=== PATIENT | female | born 1960 | race Caucasian/White ===

== ENCOUNTER → 2017-03-21 12:12 | Outpatient (CLI) | payer MEDICAID | LOC: D.MAMMO 12:12 → D.MRI 15:30 → D.MAMMO 16:00 | DX: Z12.31 Encounter for screening mammogram for malignant neoplasm of breast (principal) ==

== ENCOUNTER → 2017-03-22 14:52 | Outpatient (CLI) | payer MEDICAID | END | disposition home or self-care (01) | LOC: D.MRI 14:52 | DX: M54.16 Radiculopathy, lumbar region (principal) ==

== ENCOUNTER → 2017-06-22 14:29 | Outpatient (CLI) | payer MEDICAID | END | disposition home or self-care (01) | LOC: D.CT 14:29 | DX: R31.9 Hematuria, unspecified (principal) ==

== ENCOUNTER → 2018-06-20 09:57 | Outpatient (CLI) | payer MEDICAID | END | disposition home or self-care (01) | LOC: D.MRI 09:57 | DX: M54.16 Radiculopathy, lumbar region (principal) ==

== ENCOUNTER 2019-02-27 12:00 | Outpatient (CLI) | payer MEDICAID ==
[2019-04-01 16:37] VITALS: BMI 35.7
== END 2019-02-27 12:30 | disposition home or self-care (01) ==
LOC: D.MAMMO 12:00
PROVIDERS: ATTEND Family Medicine
DX: Z12.31 Encounter for screening mammogram for malignant neoplasm of breast (principal)

== ENCOUNTER 2019-03-05 08:40 | Inpatient (IN) | payer MEDICAID ==
[~2019-03-05] VITALS: Ht 157.5 cm; Wt 91.0 kg
[2019-03-05] MEDS ORDERED: OMEPRAZOLE20 M1 PO (09:30)
[2019-03-05] MEDS ORDERED: ROBAXIN500 MG PO (09:30)
[2019-03-05] MEDS ORDERED: NAPROSYN500 MG PO (09:30)
[2019-03-05] MEDS ORDERED: TRAZODONE HCL150 MG PO (09:31)
[2019-03-05] MEDS ORDERED: EFFEXOR XR37.5 MG PO (09:32)
[2019-03-05 10:13] VITALS: BP 168/87; BMI 36.7
[2019-03-05 10:18] LABS: BASOPHILS 0.1 % (0-2); EOSINOPHILS 0.1 % (0-7); HEMATOCRIT 42.7 % (36.0-48.0); HEMOGLOBIN 15.4 g/dL (12-16); IMMATURE GRANULOCYTES 0.3 % (0-5); LYMPHOCYTES 11.1 % (15-50); MCH 30.2 pg (26.0-34.0); MCHC 36.1 g/dL (31.0-37.0); MCV 83.7 fL (80.0-100.0); MONOCYTES 3.8 % (2-11); NEUTROPHILS 84.6 % (40-80); PLATELET COUNT 222 10x3/uL (130-400); RDW 13.9 % (11.5-14.5); WBC 16.4 10x3/uL (4.8-10.8)
[2019-03-05 10:36] LABS: ALBUMIN 3.6 g/dL (3.4-5.0); ANION GAP 16.9 mmol/L (8-16); BILIRUBIN - TOTAL 0.55 mg/dL (0.2-1.3); CALCIUM 9.5 mg/dL (8.5-10.1); CARBON DIOXIDE 23.8 mmol/L (21.0-32.0); MAGNESIUM - SERUM 1.8 mg/dL (1.8-2.4); POTASSIUM - SERUM 3.7 mmol/L (3.5-5.1); PROTEIN - SERUM 7.1 g/dL (6.4-8.2)
--- NOTE | 2019-03-05 11:01 | NUR ---
PT TO CT VIA WHEELCHAIR. NAD NOTED.
--- NOTE | 2019-03-05 11:14 | NUR ---
PT BACK TO ROOM FORM CT. GAVE EFFEXOR ORDERED WITH SIP OF WATER. IVPB ANTIBIOTIC HUNG AT THIS TIME. PT DENIES ANY NEEDS AT THIS TIME. CALL LIGHT IN REACH, NAD NOTED,W ILL CONTINUE TO MONITOR.
[2019-03-05 13:08] VITALS: Ht 157.5 cm; Wt 91.0 kg
[2019-03-05 14:12] VITALS: BP 132/67
--- NOTE | 2019-03-05 15:44 | NUR ---
PER DR. HARTMAN, DILAUDID CAN BE CHANGED TO Q4PRN.
--- NOTE | 2019-03-05 15:59 | NUR ---
GAVE 1MG OF DILAUDID FOR PAIN LEVEL OF 9/10. PT DENIES ANY OTHER NEEDS AT THIS TIME. CALL LIGHT IN REACH, NAD NOTED, WILL CONTINUE TO MONITOR.
[2019-03-05 16:20] VITALS: BP 112/64
[2019-03-05 16:59] LABS: APPEARANCE CLEAR (CLEAR); COLOR YELLOW (YELLOW); GLUCOSE NEGATIVE (NEGATIVE); KETONE NEGATIVE (NEGATIVE); NITRITE NEGATIVE (NEGATIVE); PROTEIN TRACE mg/dL (NEGATIVE)
[2019-03-05 17:00] LABS: BILIRUBIN NEGATIVE (NEGATIVE); UROBILINOGEN NORMAL (NORMAL)
[2019-03-05 17:20] LABS: UDS - AMPHET NEGATIVE QUAL (NEGATIVE); UDS - BARB NEGATIVE QUAL (NEGATIVE); UDS - BENZO NEGATIVE QUAL (NEGATIVE); UDS - COCAINE NEGATIVE QUAL (NEGATIVE); UDS - OPIATE POSITIVE QUAL (NEGATIVE); UDS - PCP NEGATIVE QUAL (NEGATIVE); UDS - THC POSITIVE QUAL (NEGATIVE)
--- NOTE | 2019-03-05 19:20 | NUR ---
EVENING ROUNDS COMPLETE, PT LAYING IN BED. NO SIGNS OF DISTRESS. PT DENIES ANY PAIN AT THIS TIME. CL IN REACH. BED IN LOWEST POSITION, CONT WITH POC.
[2019-03-05 23:21] VITALS: BP 125/75
[2019-03-06 04:17] VITALS: BP 124/77
[2019-03-06 06:00] LABS: BASOPHILS 0.1 % (0-2); EOSINOPHILS 1.3 % (0-7); HEMATOCRIT 39.4 % (36.0-48.0); HEMOGLOBIN 13.8 g/dL (12-16); IMMATURE GRANULOCYTES 0.2 % (0-5); LYMPHOCYTES 21.7 % (15-50); MEAN PLATELET VOLUME 9.9 fL (7.4-10.4); MONOCYTES 4.9 % (2-11); NEUTROPHILS 71.8 % (40-80); RDW 14.2 % (11.5-14.5)
[2019-03-06 06:24] LABS: CALC OSMOLALITY 283 mosm/kg (275-300); CALCIUM 8.8 mg/dL (8.5-10.1); CARBON DIOXIDE 27.4 mmol/L (21.0-32.0); CHLORIDE - SERUM 106 mmol/L (98-107); CREATININE - SERUM 0.8 mg/dL (0.6-1.3); GLUCOSE 129 mg/dL (74-106); POTASSIUM - SERUM 3.5 mmol/L (3.5-5.1); SODIUM 141 mmol/L (136-145); eGFR NON AFRICAN AMERICAN 78 mL/min (90-120)
[2019-03-06 06:25] LABS: UREA NITROGEN 14 mg/dL (7-18)
[2019-03-06 06:26] LABS: MCV 85.7 fL (80.0-100.0); PLATELET COUNT 165 10x3/uL (130-400); WBC 10.7 10x3/uL (4.8-10.8)
--- NOTE | 2019-03-06 07:10 | NUR ---
REPORT RECEIVED FOR ARCHITECTURAL PROJECT MANAGER AND PATIENT CARE ASSUMED. PATIENT LAYING IN BED ON BACK AWAKE, ALERT AND ORIENTD X 4. PATIENT DENIES ANY NEEDS OR PAIN. WILL CONTINUE WITH PLAN OF CARE. SR UP X2 BED IN LOW POSITION AND CALL LIGHT IN REACH.
--- NOTE | 2019-03-06 08:00 | NUR ---
PATIENT COMPLAINS LOWER ABD PAIN AT AN 8. MEDICATED PER MAR WITH DILAUDED. SHIMON DE IN ROOM AND NEW ORDERS RECEIEVED. WILL CONTINUE TO MONITOR. SR UP X 2 BED IN LOW POSITION AND CALL LIGHT IN REACH.
[2019-03-06 09:39] VITALS: BP 128/90
[2019-03-06 11:05] VITALS: BP 124/74
--- NOTE | 2019-03-06 11:35 | NUR ---
PATIENT STATES FEELING BETTER AND UP TO SHOWER.
--- NOTE | 2019-03-06 12:15 | NUR ---
CALLED TO PATIENTS ROOM. PATIENT STATES THAT SHIMON DE TOLD HER THAT SHE WOULD BE ADVANCED TO FULL LIQUID DIET BUT ORDERS HAVE NOT BEEN CHANGED.CALLED SHIMON DE AND RECEIVED ORDER FOR FULL LIQUID DIET.
--- NOTE | 2019-03-06 13:00 | NUR ---
CALLED TO PATIENT ROOM. PATIENT HAD CONSUMED 50% OF FULL LIQUID DIET. PATIENT IS CRYING AND STATING THAT HER ABD IS HURTING AT A 10 AND THAT SHE IS NAUSEATED. SHE STATES THAT SHE REGRETS ASKING FOR FULL LIUID DIET. MEDICATED PATIENT PER MAR WITH DILAUDTIFFANY AND RAVINDER IV. AT BS. WILL CONTINUE TO MONITOR. SR UP X 2 BED IN LOW POSITION AND CALL LIGHT IN REACH.
--- NOTE | 2019-03-06 13:30 | NUR ---
PATIENT LAYING IN BED ON BACK WITH EYES CLOSED AND BREATHING EVENLY. AT BS. WILL CONTINUE TO MONITOR. SR UP X2 BED IN LOW POSTION AND CALL LIGHT IN REACH.
--- NOTE | 2019-03-06 14:18 | NUR ---
CALLED TO PATIENTS ROOM. PATIENT REQUESTING SUPPOSITORY FOR CONSTIPATION. PATIENT MEDICATED PER MAR WITH DUCOLOX SUPPOSITORY. PATIENT TOLERATED WELL. WILL CONTINUE TO [facility]. SR UP X 2 BED IN LOW POSITION AND CALL [facility] IN REACH.
--- NOTE | 2019-03-06 15:35 | NUR ---
DR HARTMAN IN ROOM. NEW ORDERS RECEIVED. MEDICATED PATIENT PER MAR AND NEW ORDER WITH DILAUDED 2 MG IV. WILL CONTINUE TO MONITOR. SR UP X 2 BED IN LOW POSITION AND CALL LIGHT IN REACH.
[2019-03-06 16:00] VITALS: BP 164/92
--- NOTE | 2019-03-06 16:15 | NUR ---
PATIENT LAYING IN BED ON LEFT SIDE WITH EYES CLOSED AND BREATHING EVENLY. WILL CONTINUE TO MONITOR. SR UP X 2 BED IN LOW POSITION AND CALL LIGHT IN REACH.
--- NOTE | 2019-03-06 19:15 | NUR ---
EVENING ROUNDS COMPLETE. PT LAYING IN BED. PT C/O 02/17 PAIN, PRN DILAUDID GIVEN. CL IN REACH, BED IN LOWEST POSITION. TEACHING ON FALL PERCAUTIONS. PT VOICED UNDERSTANDING. CONT WITH POC.
[2019-03-07 03:37] VITALS: BP 122/75
[2019-03-07 05:59] LABS: BASOPHILS 0.2 % (0-2); EOSINOPHILS 0.3 % (0-7); HEMATOCRIT 38.4 % (36.0-48.0); IMMATURE GRANULOCYTES 0.2 % (0-5); LYMPHOCYTES 8.6 % (15-50); MCH 29.1 pg (26.0-34.0); MCHC 33.9 g/dL (31.0-37.0); MCV 85.9 fL (80.0-100.0); MEAN PLATELET VOLUME 9.9 fL (7.4-10.4); MONOCYTES 5.2 % (2-11); NEUTROPHILS 85.5 % (40-80); PLATELET COUNT 170 10x3/uL (130-400); RBC 4.47 10x6/uL (4.00-5.40); RDW 14.1 % (11.5-14.5); WBC 11.2 10x3/uL (4.8-10.8)
[2019-03-07 06:15] LABS: CALC OSMOLALITY 283 mosm/kg (275-300); CALCIUM 8.4 mg/dL (8.5-10.1); CARBON DIOXIDE 31.2 mmol/L (21.0-32.0); CHLORIDE - SERUM 105 mmol/L (98-107); CREATININE - SERUM 0.8 mg/dL (0.6-1.3); GLUCOSE 136 mg/dL (74-106); POTASSIUM - SERUM 3.8 mmol/L (3.5-5.1); SODIUM 142 mmol/L (136-145); UREA NITROGEN 10 mg/dL (7-18); eGFR NON AFRICAN AMERICAN 78 mL/min (90-120)
--- NOTE | 2019-03-07 07:07 | NUR ---
REPORT RECEIVED FROM TILE FINISHER AND PATIENT CARE ASSUMED. PATIENT LAYING IN BED ON LEFT SIDE WITH EYES CLOSED AND BREATHING EVENLY. WILL CONTINUE TO MONITOR. SR UP X 2 BED IN LOW POSITION AND CALL LIGHT IN REACH.
[2019-03-07 08:00] VITALS: BP 128/72
--- NOTE | 2019-03-07 10:08 | MORECARE ---
CASE MANAGEMENT DISCHARGE SUMMARY PATIENT: VANI RAMOS UNIT: [id number] ADM DATE: 03/05/19 AGE: 58 : 62 SEX: F ROOM/BED: D.1212 AUTHOR: BRAVO SCHILLING PHYSICIAN: REFERRING PHYSICIAN: ROBBIN HARTMAN MD DATE OF SERVICE: 03/07/19 Discharge Plan Patient Name: VANI RAMOS Facility: [facility]:[place] : 1960 Planned Disposition: Home Anticipated Discharge Date: 03/09/19 Discharge Date: Expected LOS: 4 Initial Reviewer: [email or web address] Initial Review Date: 03/05/2019 Generated: 03/07/19 11:08 am Comments DCP- Discharge Planning Updated by [email or web address]: Junie Mary on 03/07/19 9:[address] Patient Name: VANI RAMOS Admission Status: Elective Accout number: [id number] Admission Date: 03-05-2019 : 1960 Admission Diagnosis: Attending: ROBBIN HARTMAN Current LOS: 2 Anticipated DC Date: 03-09-2019 Planned Disposition: Home Primary Insurance: MEDICAID [place] Discharge Planning Comments: DC PLAN: Return home with her . She is independent at home. ANTICIPATED DC NEEDS: Denied known dc needs. CM met with patient to complete initial dc planning assessment. CM educated patient on the CM role and verbal consent given by patient to complete assessment. CM verified patient's address, phone number, and emergency contact phone numbers. Patient lives at home with her and reports she is independent in her care at home. At discharge patient plans to return home and feels this is a safe discharge. CM discussed availability of home health, rehab services, and medical equipment. Patient denied known discharge needs at this time. Patient reports her will transport her home at time of discharge. Patient is in a lot of pain that is requiring pain medication every 4 hours. She is tearful and stated she told Dr. Rodgers about her pain level. CM will continue to follow and will assist as needed with dc plans/needs. Hardware Engineering Manager: Junie Mary DCP- Discharge Planning Updated by [email or web address]: Rachael Figueredo on 03/06/19 6:[address] CM attempted to meet with patient for discharge planning. Patient requested for CM to come back at a later time d/t her pain level. CM will continue to follow and assist as needed with discharge planning / needs. DCPIA - Discharge Planning Initial Assessment Updated by [email or web address]: Junie Mary on 03/07/19 10:01 am * Is the patient Alert and Oriented? Yes * How many steps to enter\exit or inside your home? none * PCP Dr. Rodgers * Pharmacy [facility] * Preadmission Environment Home with Family * ADLs Independent * Equipment None * List name and contact numbers for known caregivers / representatives who currently or will assist patient after discharge: Cassius Ramos - spouse - [phone] * Verbal permission to speak to the caregivers and representatives has been obtained from the patient. Yes * Community resources currently utilized None * Additional services required to return to the preadmission environment? No * Can the patient safely return to the preadmission environment? Yes * Has this patient been hospitalized within the prior 30 days at any hospital? No Patient Name: VANI RAMOS Page [phone] at 1008 All edits/amendments must be made on the electronic document DICTATION DATE: 03/07/19 1008 NIGHT COORDINATOR: ERASMO 03/07/19 1008 RPT#: [id number] LA DATE: STATUS: ADM IN [facility] [address] [place] [address] END OF REPORT
[2019-03-07 14:47] VITALS: BP 136/83
--- NOTE | 2019-03-07 15:17 | NUR ---
PATIENT COMPLAINS OF ABD PAIN AT A 9. STATES THAT PREVIOUS TYLENOL HELPED INITIALLY BUT PAIN HAS RETURNED AND IS INCREASING IN INTENSITY. MEDICATED PER MAR WITH DILAUDED 2 MG IV. WILL CONTINUE TO MONITOR PATIENT. SR UP X 2 BED IN LOW POSITION AND CALL LIGHT IN REACH.
--- NOTE | 2019-03-07 19:10 | NUR ---
EVENING ROUNDS COMPLETE, PT LAYING IN BED, NO SIGNS OF DISTRESS. PT DENIES ANY PAIN AT THIS TIME. VSS, CL IN REACH, BED IN LOWEST POSITION. CONT WITH POC.
[2019-03-07 20:25] VITALS: BP 146/77
[2019-03-08 04:25] VITALS: BP 135/80
--- NOTE | 2019-03-08 07:10 | NUR ---
REPORT RECEIVED FROM WELDER PLASTIC AND PATIENT CARE ASSUMED. PATIENT LAYING IN BED ON RT SIDE WITH EYES CLOSED AND BREATHING EVENLY. WILL CONTINUE WITH PLAN OF CARE. SR UP X 2 BED IN LOW POSITION AND CALL LIGHT IN REACH.
--- NOTE | 2019-03-08 07:30 | NUR ---
PATIENT COMPLAINS OF NAUSEA. MEDICATED PER MAR WITH ZOFRAN 4 MG IV. WILL CONTINUE TO [facility].
--- NOTE | 2019-03-08 08:42 | NUR ---
PATIENT STATES FEELING BETTER . NO NAUSEA. WILL CONTINUE TO MONITOR. SR UP X 2 BED IN LOW POSITION AND CALL LIGHT IN REACH.
--- NOTE | 2019-03-08 11:00 | NUR ---
PATIENT IS STABLE AND VSS. PATIENT UP TO SHOWER, COMPLETE LINEN CHANGE AND NEW GOWN. WILL CONTINUE TO MONITOR. SR UP X 2 BED IN LOW POSITION AND CALL LIGHT IN REACH.
--- NOTE | 2019-03-08 14:00 | NUR ---
PATIENT AMBULATING ON UNIT WITH SPOUSE AT .
--- NOTE | 2019-03-08 16:55 | NUR ---
PATIENT EATING SUPPER. DENIES ANY NEEDS OR PAIN. WILL CONTINUE TO MONITOR.SR UP X 2 BED IN LOW POSITION AND CALL LIGHT IN REACH.
[2019-03-08 19:38] VITALS: BP 132/78
[2019-03-09] VITALS: BP 129/68
[2019-03-09 04:00] VITALS: BP 161/81
--- NOTE | 2019-03-09 07:15 | NUR ---
PT RESTING IN BED, SHIFT ASSESSMENT PERFORMED. DENIES ANY NEEDS AT THIS TIME, WILL CONT TO FOLLOW POC
[2019-03-09 07:21] VITALS: BP 174/88
[2019-03-09 07:58] LABS: BASOPHILS 0.3 % (0-2); EOSINOPHILS 1.1 % (0-7); HEMATOCRIT 38.6 % (36.0-48.0); HEMOGLOBIN 13.3 g/dL (12-16); IMMATURE GRANULOCYTES 0.3 % (0-5); LYMPHOCYTES 20.3 % (15-50); MCH 29.3 pg (26.0-34.0); MCHC 34.5 g/dL (31.0-37.0); MEAN PLATELET VOLUME 9.3 fL (7.4-10.4); PLATELET COUNT 179 10x3/uL (130-400); RBC 4.54 10x6/uL (4.00-5.40); RDW 14.1 % (11.5-14.5)
[2019-03-09 08:16] LABS: CALC OSMOLALITY 282 mosm/kg (275-300); CALCIUM 8.9 mg/dL (8.5-10.1); CARBON DIOXIDE 28.4 mmol/L (21.0-32.0); CHLORIDE - SERUM 105 mmol/L (98-107); CREATININE - SERUM 0.8 mg/dL (0.6-1.3); GLUCOSE 131 mg/dL (74-106); POTASSIUM - SERUM 3.5 mmol/L (3.5-5.1); SODIUM 142 mmol/L (136-145); UREA NITROGEN 7 mg/dL (7-18); eGFR NON AFRICAN AMERICAN 78 mL/min (90-120)
[2019-03-09] MEDS ORDERED: LEVAQUIN750 MG PO (08:32)
[2019-03-09] MEDS ORDERED: FLAGYL500 MG PO (08:33)
--- NOTE | 2019-03-09 10:05 | NUR ---
DISCHARGE INTRUCTIONS REVIEWED WITH PT AND ALL QUESTIONS ANSWERED, PT BECAME HYSTERICAL WHEN NURSE TOLD HER THERE WAS NO PAIN MEDICATION OR NAUSEA MEDICATION ORDERED. PAGED CARLENE PAK AND APPROVAL GIVEN TO CALL IN y primeOMINE AND ZOFRAN FOR PT. CALLED IN TO [facility] AND SPOKE WITH LEE. PIV REMOVED WITH CATHETER TIP INTACT. PT IS WAITING FOR TO ARRIVE
--- NOTE | 2019-03-09 10:30 | NUR ---
PT LEFT FACILITY WITH
--- NOTE | 2019-03-09 22:12 | MORECARE ---
CASE MANAGEMENT DISCHARGE SUMMARY PATIENT: VANI RAMOS UNIT: [id number] ADM DATE: 03/05/19 AGE: 58 : 62 SEX: F ROOM/BED: D.1212 AUTHOR: BRAVO SCHILLING PHYSICIAN: REFERRING PHYSICIAN: ROBBIN HARTMAN MD DATE OF SERVICE: 03/09/19 Discharge Plan Patient Name: VANI RAMOS Facility: [facility]:[place] : 1960 Planned Disposition: Home Anticipated Discharge Date: 03/09/19 Discharge Date: 03/09/2019 Expected LOS: 4 Initial Reviewer: [email or web address] Initial Review Date: 03/05/2019 Generated: 03/09/19 11:11 pm DCP- Discharge Planning Updated by [email or web address]: Junie Mary on 03/07/19 9:[address] Patient Name: VANI RAMOS Admission Status: Elective Accout number: [id number] Admission Date: 03-05-2019 : 1960 Admission Diagnosis: Attending: ROBBIN HARTMAN Current LOS: 2 Anticipated DC Date: 03-09-2019 Planned Disposition: Home Primary Insurance: MEDICAID [place] Discharge Planning Comments: DC PLAN: Return home with her . She is independent at home. ANTICIPATED DC NEEDS: Denied known dc needs. CM met with patient to complete initial dc planning assessment. CM educated patient on the CM role and verbal consent given by patient to complete assessment. CM verified patient's address, phone number, and emergency contact phone numbers. Patient lives at home with her and reports she is independent in her care at home. At discharge patient plans to return home and feels this is a safe discharge. CM discussed availability of home health, rehab services, and medical equipment. Patient denied known discharge needs at this time. Patient reports her will transport her home at time of discharge. Patient is in a lot of pain that is requiring pain medication every 4 hours. She is tearful and stated she told Dr. Rodgers about her pain level. CM will continue to follow and will assist as needed with dc plans/needs. Picture Painter: Junie Mary DCP- Discharge Planning Updated by [email or web address]: Rachael Figueredo on 03/06/19 6:[address] CM attempted to meet with patient for discharge planning. Patient requested for CM to come back at a later time d/t her pain level. CM will continue to follow and assist as needed with discharge planning / needs. DCPIA - Discharge Planning Initial Assessment Updated by [email or web address]: Junie Mary on 03/07/19 10:01 am * Is the patient Alert and Oriented? Yes * How many steps to enter\exit or inside your home? none * PCP Dr. Rodgers * Pharmacy [facility] * Preadmission Environment Home with Family * ADLs Independent * Equipment None * List name and contact numbers for known caregivers / representatives who currently or will assist patient after discharge: Cassius Ramos - spouse - [phone] * Verbal permission to speak to the caregivers and representatives has been obtained from the patient. Yes * Community resources currently utilized None * Additional services required to return to the preadmission environment? No * Can the patient safely return to the preadmission environment? Yes * Has this patient been hospitalized within the prior 30 days at any hospital? No Last DP export: 03/07/19 9:08 a Patient Name: VANI RAMOS Page [phone] at 2212 All edits/amendments must be made on the electronic document DICTATION DATE: 03/09/192210 TELEPHONE DIAPHRAGM ASSEMBLER: ERASMO 03/09/192210 RPT#: [id number] DC DATE:03/09/19 STATUS: DIS IN [facility] [address] [place] [address] END OF REPORT
== END 2019-03-09 10:30 | disposition home or self-care (01) | DRG 392 ==
LOC: D.M3 08:40 → D.WS 08:40 → D.M3 08:59
PROVIDERS: Family Medicine; ADMIT Internal Medicine Nephrology; ATTEND Internal Medicine Nephrology
DX: A09 Infectious gastroenteritis and colitis, unspecified (principal); N17.9 Acute kidney failure, unspecified; K92.1 Melena; K59.09 Other constipation; Z87.891 Personal history of nicotine dependence; K52.89 Other specified noninfective gastroenteritis and colitis

== ENCOUNTER 2019-04-01 12:19 | Inpatient (IN) | payer MEDICAID ==
[~2019-04-01] VITALS: Ht 157.5 cm; Wt 88.6 kg
[~2019-04-01 12:19] MED LIST: EFFEXOR XR37.5 MG PO; FLAGYL500 MG PO; LEVAQUIN750 MG PO; NAPROSYN500 MG PO; OMEPRAZOLE20 M1 PO; ROBAXIN500 MG PO; TRAZODONE HCL150 MG PO
--- NOTE | 2019-04-01 12:38 | NUR ---
PT POINTS TO EPIGASTRIC WHEN ASKED WHERE PAIN IS.
[2019-04-01 12:40] LABS: BASOPHILS 0.1 % (0-2); EOSINOPHILS 0.5 % (0-7); HEMATOCRIT 42.2 % (36.0-48.0); HEMOGLOBIN 14.8 g/dL (12-16); IMMATURE GRANULOCYTES 0.4 % (0-5); LYMPHOCYTES 20.4 % (15-50); MCH 29.6 pg (26.0-34.0); MCHC 35.1 g/dL (31.0-37.0); MCV 84.4 fL (80.0-100.0); MEAN PLATELET VOLUME 9.3 fL (7.4-10.4); MONOCYTES 8.3 % (2-11); NEUTROPHILS 70.3 % (40-80); PLATELET COUNT 210 10x3/uL (130-400)
[2019-04-01 13:00] LABS: AMYLASE - SERUM 36 U/L (25-115); LIPASE 154 U/L (73-393)
[2019-04-01 13:03] LABS: ALBUMIN 4.1 g/dL (3.4-5.0); ALKALINE PHOSPHATASE 102 U/L (46-116); ALT (SGPT) 28 U/L (10-68); BILIRUBIN - TOTAL 0.77 mg/dL (0.2-1.3); CALC OSMOLALITY 281 mosm/kg (275-300); CALCIUM 9.4 mg/dL (8.5-10.1); CARBON DIOXIDE 22.9 mmol/L (21.0-32.0); CHLORIDE - SERUM 104 mmol/L (98-107); CREATININE - SERUM 0.9 mg/dL (0.6-1.3); GLUCOSE 158 mg/dL (74-106); POTASSIUM - SERUM 3.6 mmol/L (3.5-5.1); PROTEIN - SERUM 7.9 g/dL (6.4-8.2); SODIUM 140 mmol/L (136-145); UREA NITROGEN 12 mg/dL (7-18); eGFR NON AFRICAN AMERICAN 68 mL/min (90-120)
[2019-04-01 13:08] LABS: CKMB 0.5 U/L (0.0-3.6); CREATINE KINASE 38 UL (21-215); MAGNESIUM - SERUM 1.9 mg/dL (1.8-2.4)
[2019-04-01 13:09] LABS: TROPONIN-I < 0.017 ng/mL (0.000-0.060)
--- NOTE | 2019-04-01 13:09 | NUR ---
PT STATES SHE GOT RELIEF FROM PRESSURE FROM NITRO TAB.
--- NOTE | 2019-04-01 13:38 | NUR ---
PT STATES PAIN IS A 3 AT THIS TIME.
[2019-04-01 13:48] VITALS: BP 117/74
[2019-04-01 15:35] LABS: APTT 32.7 SECONDS (22.8-39.4); INR 1.07 (0.85-1.17); PROTIME 13.4 SECONDS (11.6-15.0)
[2019-04-01 15:36] LABS: D-DIMER-QUANTITATIVE < 0.27 ug/mLFEU (0.20-0.54)
[2019-04-01 15:49] LABS: CKMB 0.3 U/L (0.0-3.6); CREATINE KINASE 32 UL (21-215)
[2019-04-01 15:53] LABS: TROPONIN-I < 0.017 ng/mL (0.000-0.060)
--- NOTE | 2019-04-01 16:23 | NUR ---
RECEIVED PT TO ROOM 2125 VIA WHEELCHAIR. PT A/O X4, VITAL SIGNS STABLE, RESP EVEN AND NONLABORED ON RA. RT FA IV SL. ORIENTED PT TO ROOM AND CALL LIGHT. WILL ASSESS PT AND START PLAN OF CARE.
[2019-04-01 16:37] VITALS: BP 147/73; Ht 157.5 cm; Wt 88.6 kg
--- NOTE | 2019-04-01 19:50 | NUR ---
PT REQUESTED TRAZADONE. SHIMON HERRERA PAGED. NEW ORDERES ESTABLISHED. WILL CONTINUE TO MONITOR.
[2019-04-01 20:23] VITALS: BP 132/70
[2019-04-01 21:38] LABS: APPEARANCE CLEAR (CLEAR); BILIRUBIN NEGATIVE (NEGATIVE); COLOR YELLOW (YELLOW); GLUCOSE NEGATIVE (NEGATIVE); KETONE MODERATE mg/dL (NEGATIVE); NITRITE NEGATIVE (NEGATIVE); PROTEIN 1+ mg/dL (NEGATIVE); UROBILINOGEN NORMAL (NORMAL)
[2019-04-01 21:40] LABS: BACTERIA FEW /hpf (NEGATIVE); EPITHELIAL CELLS 0-5 /hpf (0-5); RED CELLS - URINE 0-5 /hpf (0-5); WHITE CELLS - URINE 0-5 /hpf (NEGATIVE)
[2019-04-01 21:43] LABS: UDS - AMPHET NEGATIVE QUAL (NEGATIVE); UDS - BARB NEGATIVE QUAL (NEGATIVE); UDS - BENZO NEGATIVE QUAL (NEGATIVE); UDS - COCAINE NEGATIVE QUAL (NEGATIVE); UDS - OPIATE POSITIVE QUAL (NEGATIVE); UDS - PCP NEGATIVE QUAL (NEGATIVE); UDS - THC POSITIVE QUAL (NEGATIVE)
[2019-04-01 22:01] LABS: CKMB 0.3 U/L (0.0-3.6); CREATINE KINASE 33 UL (21-215)
[2019-04-01 22:03] LABS: TROPONIN-I < 0.017 ng/mL (0.000-0.060)
[2019-04-02 00:11] VITALS: BP 112/60
--- NOTE | 2019-04-02 00:48 | NUR ---
I have reviewed this patient and I concur with the Shift Assessment completed by the Licensed Practical Nurse today this shift.
--- NOTE | 2019-04-02 02:54 | NUR ---
PT RESTING IN BED RR EVEN AND UNLABORED. NO S/S OF DISTRESS AT THIS TIME. PT REMAINS NPO UNTIL CARDIOLOGY SEE'S PT. VITALS STABLE. PT RUNNING 57-SINUS SYL ON TELEMETRY. BED LOW CALL LIGHT WITHIN REACH. WILL CONTINUE TO MONITOR.
[2019-04-02 04:24] VITALS: BP 112/67
[2019-04-02 04:31] LABS: BASOPHILS 0.2 % (0-2); EOSINOPHILS 1.1 % (0-7); HEMOGLOBIN 12.4 g/dL (12-16); IMMATURE GRANULOCYTES 0.4 % (0-5); LYMPHOCYTES 31.2 % (15-50); MCH 29.2 pg (26.0-34.0); MCHC 34.4 g/dL (31.0-37.0); MCV 84.9 fL (80.0-100.0); MEAN PLATELET VOLUME 9.5 fL (7.4-10.4); MONOCYTES 10.6 % (2-11); NEUTROPHILS 56.5 % (40-80); PLATELET COUNT 177 10x3/uL (130-400); RBC 4.24 10x6/uL (4.00-5.40); RDW 13.8 % (11.5-14.5)
[2019-04-02 04:40] LABS: WBC 5.3 10x3/uL (4.8-10.8)
[2019-04-02 04:59] LABS: CALC OSMOLALITY 281 mosm/kg (275-300); CARBON DIOXIDE 28.5 mmol/L (21.0-32.0); CHLORIDE - SERUM 103 mmol/L (98-107); CKMB 0.3 U/L (0.0-3.6); CREATINE KINASE 29 UL (21-215); CREATININE - SERUM 0.8 mg/dL (0.6-1.3); GLUCOSE 112 mg/dL (74-106); MAGNESIUM - SERUM 1.8 mg/dL (1.8-2.4); POTASSIUM - SERUM 4.1 mmol/L (3.5-5.1); SODIUM 141 mmol/L (136-145); TROPONIN-I < 0.017 ng/mL (0.000-0.060); UREA NITROGEN 12 mg/dL (7-18); eGFR NON AFRICAN AMERICAN 78 mL/min (90-120)
[2019-04-02 07:53] VITALS: BP 126/72
--- NOTE | 2019-04-02 09:28 | NUR ---
PATIENT WAS COMPLAINING OF HEADACHE AND CHEST PAIN. DR TRAN ROUNDED AND PUT IN A GI CONSULT. TREATED HER HEADACHE AND CHEST PAIN ORDERED. SHE HAS HAD RELIEF OF HER PAIN. WAITING ON ORDERS FROM GI.
[2019-04-02 11:03] VITALS: BP 106/53
[2019-04-02 15:37] VITALS: BP 112/74
--- NOTE | 2019-04-02 15:41 | NUR ---
PATIENT IS GETTING HER EGD WITH T[facility]A NOW.
--- NOTE | 2019-04-02 16:16 | NUR ---
PATIENT IS BACK FROM EGD. SHE IS REQUESTING COFFEE AND SHE NOW HAS A DIET.
--- NOTE | 2019-04-02 16:32 | NUR ---
AFTER EGD WITH ISSAC SHAFFER, THEY TOOK ONE BIOPSY IN THE STOMACH. SHE HAS SMALL GASTRITIS AND ESOPHOGITIS.
[2019-04-02 20:00] VITALS: BP 139/74
--- NOTE | 2019-04-02 20:00 | NUR ---
PT SITTING UP IN BED ALERT AND ORIENTED X4. FAMILY AT BEDSIDE. PT DENIES ANY PAIN OR FURTHER NEEDS AT THIS TIME. BED LOW CALL LIGHT WITHIN REACH . WILL CONTINUE TO MONITOR.
--- NOTE | 2019-04-03 01:44 | NUR ---
PT RESTING IN BED WITH EYES CLOSED RR EVEN AND UNLABORED. BED LOW CALL LIGHT WITHIN REACH. WILL CONTINUE TO MONITOR.
[2019-04-03 04:00] VITALS: BP 108/62
--- NOTE | 2019-04-03 04:56 | NUR ---
I have reviewed this patient and I concur with the Shift Assessment completed by the Licensed Practical Nurse today this shift.
[2019-04-03 05:48] LABS: BASOPHILS 0.2 % (0-2); EOSINOPHILS 1.6 % (0-7); HEMATOCRIT 37.9 % (36.0-48.0); HEMOGLOBIN 13.1 g/dL (12-16); IMMATURE GRANULOCYTES 0.3 % (0-5); LYMPHOCYTES 29.9 % (15-50); MCH 29.2 pg (26.0-34.0); MCHC 34.6 g/dL (31.0-37.0); MCV 84.6 fL (80.0-100.0); MEAN PLATELET VOLUME 9.9 fL (7.4-10.4); MONOCYTES 8.8 % (2-11); NEUTROPHILS 59.2 % (40-80); PLATELET COUNT 194 10x3/uL (130-400); RBC 4.48 10x6/uL (4.00-5.40); RDW 13.8 % (11.5-14.5); WBC 5.8 10x3/uL (4.8-10.8)
[2019-04-03 06:36] LABS: CALC OSMOLALITY 281 mosm/kg (275-300); CARBON DIOXIDE 29.5 mmol/L (21.0-32.0); CHLORIDE - SERUM 104 mmol/L (98-107); CREATININE - SERUM 0.8 mg/dL (0.6-1.3); GLUCOSE 93 mg/dL (74-106); SODIUM 141 mmol/L (136-145); UREA NITROGEN 14 mg/dL (7-18); eGFR NON AFRICAN AMERICAN 78 mL/min (90-120)
--- NOTE | 2019-04-03 07:21 | NUR ---
REPORT RECIEVED. WILL CONTINUE WITH POC. PT CURRENTLY LYING SEMI FOWLERS. CALL LIGHT W/I REACH. PT IS AAO AND UP AD ETHAN. RR EVEN AND UNLABORED ON RA. R.FOR PIV IS SALINE LOCKED. PT DENIES ANY NEEDS. NO S/S OF DISTRESS NOTED. WILL CTM.
[2019-04-03 08:29] VITALS: BP 122/82
--- NOTE | 2019-04-03 10:47 | NUR ---
I have reviewed this patient and I concur with the Shift Assessment completed by the Licensed Practical Nurse today this shift.
[2019-04-03 11:24] VITALS: BP 114/75
[2019-04-03] MEDS ORDERED: ALBUTEROL2.5 MG/3 M INH (15:16)
[2019-04-03] MEDS ORDERED: ZITHROMAX250 MG PO (15:16)
[2019-04-03] MEDS ORDERED: PROTONIX40 MG PO (15:17)
[2019-04-03 15:50] VITALS: BP 135/84
[2019-04-03] MEDS ORDERED: ALBUTEROL SULF8.5 GM INH (16:24)
--- NOTE | 2019-04-03 17:02 | NUR ---
PT DISCHARGED HOME VIA WHEELCHAIR WITH FAMILY. PT SIGNED PROPER DISCHARGE INSTRUCTIONS AND REMOVED ALL VALUABLES FROM THE ROOM. TELEMETRY REMOVED AND RETURNED. PIV REMOVED WITH CATHETER TIP FULLY INTACT.
--- NOTE | 2019-04-03 17:30 | MORECARE ---
CASE MANAGEMENT DISCHARGE SUMMARY PATIENT: VANI RAMOS UNIT: [id number] ADM DATE: 04/02/19 AGE: 58 : 62 SEX: F ROOM/BED: D.5742 AUTHOR: BRAVO SCHILLING PHYSICIAN: REFERRING PHYSICIAN: JUSTIN GUERRIER MD DATE OF SERVICE: 04/03/19 Discharge Plan Patient Name: VANI RAMOS [facility] [facility] 1960 Planned Disposition: Home Anticipated Discharge Date: 04/03/19 Discharge Date: 04/03/2019 Expected LOS: 1 Initial Reviewer: [email or web address] Initial Review Date: 04/03/2019 Generated: 04/03/19 6:29 pm Patient Name: VANI RAMOS Page [phone] at 1730 All edits/amendments must be made on the electronic document DICTATION DATE: 04/03/191728 GRAPHITE GRINDER: ERASMO 04/03/191728 RPT#: [id number] DC DATE:04/03/19 STATUS: DIS IN [facility] [address] [place] [address] END OF REPORT
--- NOTE | 2019-04-03 17:37 | MORECARE ---
CASE MANAGEMENT DISCHARGE SUMMARY PATIENT: VANI RAMOS UNIT: [id number] ADM DATE: 04/02/19 AGE: 58 : 62 SEX: F ROOM/BED: D.3759 AUTHOR: BRAVO SCHILLING PHYSICIAN: REFERRING PHYSICIAN: JUSTIN GUERRIER MD DATE OF SERVICE: 04/03/19 Discharge Plan Patient Name: VANI RAMOS Facility: [facility]:[place] : 1960 Planned Disposition: Home Anticipated Discharge Date: 04/03/19 Discharge Date: 04/03/2019 Expected LOS: 1 Initial Reviewer: [email or web address] Initial Review Date: 04/03/2019 Generated: 04/03/19 6:37 pm Comments DCP- Discharge Planning Updated by [id number]: Elvin Blanco on 04/03/19 4:[address] Patient Name: VANI RAMOS Admission Status: ER Accout number: [id number] Admission Date: 04-02-2019 : 1960 Admission Diagnosis: Attending: DONTE GUERRIER Current LOS: 1 Anticipated DC Date: 04-03-2019 Planned Disposition: Home Primary Insurance: MEDICAID [place] Discharge Planning Comments: CM MET WITH PT IN ROOM TO DISCUSS DISCHARGE PLANNING AND NEEDS. PT REPORTS LIVING AT HOME INDEPENDENTLY WITH HER SPOUSE. PT HAS NO MEDICAL EQUIPMENT AND NO OUTSIDE SERVICES ASSISTING IN THE HOME. CM DISCUSSED AVAILABILITY OF HOME HEALTH, REHAB SERVICES AND MEDICAL EQUIPMENT. PT DENIES DISCHARGE NEEDS, REPORTS HER SPOUSE WILL PICK HER UP FOR DISCHARGE HOME. Metal Riveter: Elvin Blanco DCPIA - Discharge Planning Initial Assessment Updated by [id number]: Elvin Blanco on 04/03/19 5:30 pm * Is the patient Alert and Oriented? Yes * How many steps to enter\exit or inside your home? NONE * PCP DR. MARQUEZ * Pharmacy [facility] * Preadmission Environment Home with Family * ADLs Independent * Equipment None * Other Equipment NO MEDICAL EQUIPMENT PROVIDER PREFERENCE * List name and contact numbers for known caregivers / representatives who currently or will assist patient after discharge: ALCON RAMOS, SPOUSE, * Verbal permission to speak to the caregivers and representatives has been obtained from the patient. N/A * Community resources currently utilized None * Please name any agencies selected above. NONE * Additional services required to return to the preadmission environment? No * Can the patient safely return to the preadmission environment? Yes * Has this patient been hospitalized within the prior 30 days at any hospital? No Last DP export: 04/03/19 4:30 p Patient Name: VANI RAMOS Page [phone] at 1737 All edits/amendments must be made on the electronic document DICTATION DATE: 04/03/191736 CERTIFIED MEDICAL TRANSCRIPTIONIST: ERASMO 04/03/191736 RPT#: [id number] DC DATE:04/03/19 STATUS: DIS IN [facility] [address] [place] [address] END OF REPORT
== END 2019-04-03 17:03 | disposition home or self-care (01) | DRG 391 ==
LOC: D.ER 12:19 → D.M2 15:22 → OBSVTIME 15:22 → D.M2 04-02 16:19
PROVIDERS: Family Medicine; Internal Medicine Gastroenterology; ADMIT Emergency Medicine; ATTEND Emergency Medicine
PROC: 0DB68ZX Excision of Stomach, Via Natural or Artificial Opening Endoscopic, Diagnostic (ICD-10-PCS; principal; 2019-04-02 15:45)
DX: K21.0 Gastro-esophageal reflux disease with esophagitis (principal); J18.9 Pneumonia, unspecified organism; K29.70 Gastritis, unspecified, without bleeding; M54.9 Dorsalgia, unspecified; G89.29 Other chronic pain; R73.9 Hyperglycemia, unspecified; K59.09 Other constipation

== ENCOUNTER → 2020-01-02 08:44 | Outpatient (CLI) | payer MEDICAID ==
[2019-04-01 16:37] VITALS: BMI 35.7
[~2020-01-02 08:44] MED LIST changes: +ALBUTEROL SULF8.5 GM INH; +ALBUTEROL2.5 MG/3 M INH; +PROTONIX40 MG PO; +ZITHROMAX250 MG PO
== END | disposition home or self-care (01) ==
LOC: D.CT 08:44
PROVIDERS: ATTEND Family Medicine
DX: M25.551 Pain in right hip (principal)

== ENCOUNTER → 2020-01-16 21:23 | Outpatient (CLI) | payer MEDICAID ==
[2019-04-01 16:37] VITALS: BMI 35.7
== END | disposition home or self-care (01) ==
LOC: D.LABREF 21:23
PROVIDERS: ATTEND Orthopaedic Surgery
DX: M16.11 Unilateral primary osteoarthritis, right hip (principal)

== ENCOUNTER 2020-01-17 09:53 | Inpatient (IN) | payer MEDICAID ==
[~2020-01-17] VITALS: Ht 157.5 cm; Wt 63.5 kg
[~2020-01-17 09:53] MED LIST changes: +EFFEXOR XR150 MG PO; -EFFEXOR XR37.5 MG PO; -TRAZODONE HCL150 MG PO; +TRAZODONE HCL300 MG PO
[2020-02-06 12:03] LABS: APTT 32.7 SECONDS (22.8-39.4); INR 0.99 (0.85-1.17); PROTIME 13.1 SECONDS (11.6-15.0)
[2020-02-06 12:10] LABS: BILIRUBIN NEGATIVE (NEGATIVE); GLUCOSE NEGATIVE (NEGATIVE); KETONE NEGATIVE (NEGATIVE); NITRITE NEGATIVE (NEGATIVE); UROBILINOGEN NORMAL (NORMAL)
[2020-02-06 12:10] LABS: CALC OSMOLALITY 280 mosm/kg (275-300); CALCIUM 9.5 mg/dL (8.5-10.1); CARBON DIOXIDE 27.9 mmol/L (21.0-32.0); CHLORIDE - SERUM 105 mmol/L (98-107); CREATININE - SERUM 0.7 mg/dL (0.6-1.3); GLUCOSE 89 mg/dL (74-106); POTASSIUM - SERUM 4.1 mmol/L (3.5-5.1); SODIUM 140 mmol/L (136-145); UREA NITROGEN 21 mg/dL (7-18); eGFR NON AFRICAN AMERICAN > 90 mL/min (90-120)
[2020-02-06 12:11] LABS: BACTERIA FEW /hpf (NEGATIVE); EPITHELIAL CELLS 0-5 /hpf (0-5); RED CELLS - URINE 0-5 /hpf (0-5); WHITE CELLS - URINE OCC /hpf (NEGATIVE)
[2020-02-06 12:19] LABS: BASOPHILS 0.1 % (0-2); EOSINOPHILS 0.6 % (0-7); HEMATOCRIT 41.5 % (36.0-48.0); IMMATURE GRANULOCYTES 0.2 % (0-5); LYMPHOCYTES 28.4 % (15-50); MCHC 33.7 g/dL (31.0-37.0); MEAN PLATELET VOLUME 9.5 fL (7.4-10.4); NEUTROPHILS 63.7 % (40-80); RBC 4.51 10x6/uL (4.00-5.40); RDW 13.7 % (11.5-14.5); WBC 9.9 10x3/uL (4.8-10.8)
[2020-02-06 12:20] LABS: PLATELET COUNT 241 10x3/uL (130-400)
[2020-02-12] VITALS (13 sets, daily range): BP systolic 84–126; BP diastolic 40–92; BMI 25.6
--- NOTE | 2020-02-12 06:44 | NUR ---
0630 DR. MARIN NOTIFIED OF ABNORMAL UA RESULTS. NO ORDERS RECEIVED. Ramiro LANDRUM R.N.
--- NOTE | 2020-02-12 07:09 | NUR ---
[address] ON PT.'S DESIRED SETTING. Ramiro LANDRUM R.N.
--- NOTE | 2020-02-12 09:15 | NUR ---
THROUGH TRAFFIC KEPT TO A MINIMUM. HIBACLENS AND ALCOHOL USED TO CLEAN BEFORE PREPPING. STERILE GOWNED AND GLOVED TO PREP WITH CHLORAPREP TIMES TWO.
--- NOTE | 2020-02-12 12:10 | NUR ---
RECEIVED TO ROOM 1210 VIA BED FROM PACU. A/O X3. DRESSING TO RIGHT HIP DRY AND INTACT. AT BEDSIDE. DENIES NEEDS.
--- NOTE | 2020-02-12 13:30 | NUR ---
LUNCH SERVED IN ROOM. FEEDS SELF. DENIES NEEDS. BP IS ON THE RISE AT THIS TIME. WILL CONTINUE TO MONITOR.
--- NOTE | 2020-02-12 15:00 | NUR ---
REQUESTED AND GIVEN 10MG OXY WITH 50MG VISTIRIL PO FOR C/O RIGHT HIP PAIN LEVEL 8. WILL MONITOR. BP 107/68 AT THIS TIME.
--- NOTE | 2020-02-12 16:20 | NUR ---
UP TO BSC WITH ONE PERSON MIN ASSIST. VOIDED 300cc CLEAR YELLOW URINE. SKIN CARE PER SELF.
--- NOTE | 2020-02-12 17:43 | NUR ---
ATE ABOUT HALF OF SUPPER. VSS. DENIES NEEDS. NO CHANGES NOTED.
--- NOTE | 2020-02-12 19:30 | NUR ---
VS TAKEN AND CHARTED. PT HAS NO C/O OR NEEDS AT THIS TIME. WATER WAS DELIVERED TO PT AND HER .
--- NOTE | 2020-02-12 20:00 | NUR ---
PT IS USING HER IS. SHE CAN GET THE METER TO 1600. SHE HAS BEEN INSTRUCTED TO USE THIS 10 TIMES AND HOUR WHILE SHE IS AWAKE.
--- NOTE | 2020-02-12 20:45 | NUR ---
FRESH ICE PACK TAKEN TO PT.
--- NOTE | 2020-02-12 21:47 | NUR ---
TELEMENTRY PLACED ORDERED 54 SB
--- NOTE | 2020-02-12 22:30 | NUR ---
PT UP TO BSC. TRANSFERS WELL, BUT STILL NEEDS ASSISTANCE. NO NEEDS OR C/O AT THIS TIME
[2020-02-13] VITALS (7 sets, daily range): BP systolic 86–141; BP diastolic 28–86; Ht 157.5 cm; Wt 63.5 kg
--- NOTE | 2020-02-13 00:05 | NUR ---
VS TAKEN AND CHARTED.
--- NOTE | 2020-02-13 02:30 | NUR ---
PT UP TO BSC. SHE IS TRANSFERING EASIER EVERY TIME SHE GETS UP.
--- NOTE | 2020-02-13 04:13 | NUR ---
WAKED UP FOR VS. NOTE BP LOW. PT GOT UP TO THE BSC AND DID VERY WELL WITH TRANSFER. STILL REQUIERS NOD RAMONA TO TRANSFER. FRESH ICE PACK FOR HIP GIVEN TO PT.
[2020-02-13 07:08] LABS: BASOPHILS 0.1 % (0-2); EOSINOPHILS 0.1 % (0-7); HEMATOCRIT 32.6 % (36.0-48.0); IMMATURE GRANULOCYTES 0.3 % (0-5); LYMPHOCYTES 22.1 % (15-50); MCH 30.2 pg (26.0-34.0); MCHC 33.7 g/dL (31.0-37.0); MCV 89.6 fL (80.0-100.0); MEAN PLATELET VOLUME 9.6 fL (7.4-10.4); MONOCYTES 10.4 % (2-11); PLATELET COUNT 207 10x3/uL (130-400); RBC 3.64 10x6/uL (4.00-5.40); RDW 13.4 % (11.5-14.5); WBC 11.5 10x3/uL (4.8-10.8)
[2020-02-13 07:24] LABS: CALC OSMOLALITY 277 mosm/kg (275-300); CALCIUM 8.8 mg/dL (8.5-10.1); CARBON DIOXIDE 26.1 mmol/L (21.0-32.0); CHLORIDE - SERUM 104 mmol/L (98-107); CREATININE - SERUM 0.6 mg/dL (0.6-1.3); GLUCOSE 111 mg/dL (74-106); MAGNESIUM - SERUM 1.8 mg/dL (1.8-2.4); POTASSIUM - SERUM 3.7 mmol/L (3.5-5.1); SODIUM 139 mmol/L (136-145); UREA NITROGEN 10 mg/dL (7-18); eGFR NON AFRICAN AMERICAN > 90 mL/min (90-120)
--- NOTE | 2020-02-13 07:58 | OP ---
PATIENT NAME: KASSY RAMOS MEDICAL RECORD: [id number] :62 LOCATION:D. D.1210 ADMISSION DATE:02/12/20 SURGEON: SALVADOR MARIN DO DATE OF OPERATION: 02/12/2020 PROCEDURE PERFORMED: Right total hip arthroplasty. PREOPERATIVE DIAGNOSIS: Right hip osteoarthritis. POSTOPERATIVE DIAGNOSIS: Right hip osteoarthritis. INDICATIONS: Ms. Kassy Ramos is a 59-year-old female who has had right hip pain for quite some time. She came to the office and seen to have [id number] arthritis in the right hip. She had a very little internal rotation and pain with ambulation. I informed her of the risks of this including infection, bleeding, damage to nerves and vessels in the area, leg length discrepancy, continued pain and blood clots, failure of implant, fracture, and even and she signed the consent. SURGEON: Salvador Marin DO DESCRIPTION OF PROCEDURE: The patient was taken to the operative suite, given general anesthetic and intubated. She was then moved over to the [place] table, given a gram of Ancef, 80 mg of gentamicin, and a gram of TXA. The right hip was then prepped and draped in sterile fashion. A timeout was performed and everyone was in agreement with correct side, site, patient and procedure. We then began by making an incision over the tensor fascia curt muscle. Careful dissection through the skin down to the muscle belly and took the fascia, anterior muscle belly posteriorly and then opened up the rectus interval, the rectus then medially, tensor fascia curt laterally and then careful dissection down to the ascending branch of the lateral femoral circumflex and this vessel and accompanying veins were then tied off and coagulated with the Aquamantys and cut. I then exposed the capsule and then opened up the capsule and put the Hohmanns around the neck and cut the neck of the femur and then removed the neck and the head. I then removed the pulvinar as well as the labrum from the hip joint and then reamed up to a 48 and then impacted the cup under fluoroscopy into the acetabulum and put the liner and impacted it in and then exposed the femur and used the cookie cutter and canal finder and then broached up to a 12, 12 with a -6 neck. This appeared to be a little bit long; however, x-ray, I thought was a little bit off due to instability, I then went down to an 11 stem with -6 and it was closer to length on the left and the right was still just a touch long. I then decided to go with 11 stem with -6 neck dual mobility. This was reduced with a high offset and had better stability and close to equal lengths; however, the right did seem to be a little bit long on the x-ray, which we already did all the steps to equal the lengths and without sacrificing stability. I decided to leave a little bit long, if indeed it was again hard to tell if the pelvis tilted slightly. After that, the site was irrigated with a 10% povidone-iodine and 500 mL of normal saline. I then let that sit for 3 minutes and irrigated out with a liter of normal saline and put in Brenda and vancomycin powder and tobramycin powder. I then closed the capsule with a #2 Ethibond and then Kyler Osuna, certified surgical occupational therapist assistants closed the tensor fascia curt fascia with #1 Vicryl in [id number] running locking stitch and closed the skin with 2-0 Vicryl in an inverted interrupted fashion and 4-0 Monocryl in a running subcuticular and placed the Prevena plus wound VAC on. She was then awakened and taken to recovery in stable condition. OPERATIVE REPORT [id number] KASSY RAMOS BLOOD LOSS: Approximately 300 mL. COMPLICATIONS: None. TRANSINT:[id number] Voice Confirmation ID: [id number] DOCUMENT ID: [id number] SALVADOR MARIN DO at 0758 CC: [id number] DICTATION DATE: 02/12/20 1022 GUM MIXER: 02/12/20 1700 ADM IN [facility] [address] [place] [address]
--- NOTE | 2020-02-13 08:26 | NUR ---
PT ALERT X 4. BREATH SOUNDS CLEAR BILAT. TELEMETRY IN PLACE. IV TO LEFT FOREARM, PATENT, DRESSING CDI. PREVENA TO RIGHT HIP, DRESSING CDI. PT REPORTING PAIN IMPROVED TO 8/10 AFTER MEDICATION, WILL CONTINUE TO MONITOR. SCD'S IN USE. AT BEDSIDE. BED LOW, CALL LIGHT IN REACH. NO OTHER NEEDS AT THIS TIME.
--- NOTE | 2020-02-13 19:15 | NUR ---
REPORT GIVEN BY JESUS ARNDT
[2020-02-13 20:22] LABS: BASOPHILS 0.1 % (0-2); EOSINOPHILS 0.1 % (0-7); HEMATOCRIT 28.4 % (36.0-48.0); HEMOGLOBIN 9.3 g/dL (12-16); IMMATURE GRANULOCYTES 0.1 % (0-5); LYMPHOCYTES 23.9 % (15-50); MCH 29.9 pg (26.0-34.0); MCHC 32.7 g/dL (31.0-37.0); MCV 91.3 fL (80.0-100.0); MEAN PLATELET VOLUME 9.6 fL (7.4-10.4); MONOCYTES 9.5 % (2-11); NEUTROPHILS 66.3 % (40-80); PLATELET COUNT 172 10x3/uL (130-400); RBC 3.11 10x6/uL (4.00-5.40); RDW 13.5 % (11.5-14.5)
[2020-02-13 20:25] LABS: WBC 8.1 10x3/uL (4.8-10.8)
[2020-02-13 20:29] LABS: ALBUMIN 2.8 g/dL (3.4-5.0); ALKALINE PHOSPHATASE 65 U/L (30-120); ALT (SGPT) 18 U/L (10-68); CALC OSMOLALITY 278 mosm/kg (275-300); CALCIUM 8.6 mg/dL (8.5-10.1); CARBON DIOXIDE 27.8 mmol/L (21.0-32.0); CHLORIDE - SERUM 107 mmol/L (98-107); CREATININE - SERUM 0.6 mg/dL (0.6-1.3); GLUCOSE 115 mg/dL (74-106); POTASSIUM - SERUM 3.8 mmol/L (3.5-5.1); SODIUM 140 mmol/L (136-145); UREA NITROGEN 9 mg/dL (7-18); eGFR NON AFRICAN AMERICAN > 90 mL/min (90-120)
--- NOTE | 2020-02-13 21:00 | NUR ---
PT CONT TO SLEEP SOUNDLY. STILL ON LEFT SIDE WHERE SHE LIKES TO STAY. SHE IS ALMOST IN THE POSITION. WHEN SHE IS AWAKE SHE IS CRYING LOUDLY C/O OF PAIN.
--- NOTE | 2020-02-13 21:45 | NUR ---
PT WAKED UP TO GIVE MEDS TO AND TO BE ASSESSED. SHE IS NOT CRYING AT FIRST BUT STARTED CRYING AFTER A FEW MINUTES WHEN SHE FOUND OUT HER BP WAS STILL TOO LOW FOR "REGULAR PAIN MEDS". I TALKED UP THE VISTARIL I GAVE HER. PT IV IS NOT RUNNING AT THIS TIME. DAY SHIFT GAVE HER A BOLUS THAT ENDED AT 1815 WHICH DID NOT DO ANYTHING FOR HER BP. HER HR IS REGULAR, LUNGS ARE CLEAR BUT SHE IS COUGHING UP CLEAR SPUTUM. I ENCOURAGED HER TO USE HER IS, WHICH SHE DID, WHICH MADE HER COUGH MORE. HER PUTS HER ON THE BSC, B/C THEY DO NOT CALL FOR ANY HELP FROM THE NURSING STAFF. PT IV SITE LOOKS GOOD WITH NO REDNESS NOTED. PT STATES SHE IS USING HER IS REGULARLY. I ENCOURAGED PT TO TURN EVERY 2 HOURS BUT SHE WILL NOT. SHE TOOK HER SCD'S OFF AND DOES NOT WANT THEM PUT BACK ON. I EXPLAINED THE RISK OF PNEUMONIA BY NOT TURNING AND BLOOD CLOTS BY NOT WEARING SCD'S SINCE SHE IS NOT GETTING UP. HER RIGHT HIP INCISION LOOKS GOOD. SHE HAS THE SMALL WOUND VAC AT INCISION LINE. THERE IS NOT DRAINAGE NOTED FROM INCISION. SKIN IS WARM AND DRY.
--- NOTE | 2020-02-13 21:45 | NUR ---
WAKED PT UP FOR MEDS AND ASSESSMENT. PT IS VERY DROWSEY AND NOT SAYING MUCH. SHE TOOK ALL HER MEDS FOR 2100. I LET HER KNOW THAT HER PAIN MEDS WERE DUE VERY SHORTLY AND SHE STATES SHE GIVES UP
--- NOTE | 2020-02-13 22:24 | NUR ---
PAIN MEDS TAKEN TO PT. HER STATED THAT SHE NEEDED A BIG OL' DOSE OF MORPHINE. I TOLD HIM IF I DID THAT, I'D BE CALLING A CODE. THE PT REPLYED THAT SHE DIDN'T CARE. EXPLAINED AGAIN HOW PAIN MEDS WOULD DROP HER BP TOO LOW. I'VE EXPLAINED THAT I CANNOT GIVE MEDS THE LAST TWO NIGHTS BUT SHE DOESN'T SEEM TO UNDERSTAND. SHE STARTED TO CRY AGAIN. I WROTE ON HER COMMUNICATION BOARD THE TIME SHE COULD HAVE HER NEXT MEDICATION SO SHE WOULD KNOW EXACTLY WHEN TO CALL.
--- NOTE | 2020-02-13 23:30 | NUR ---
CHECKED IN ON PT TO SEE HOW PAIN MEDS ARE WORKING. SHE IS ASLEEP NOW.
--- NOTE | 2020-02-14 00:05 | NUR ---
PT VS NOT TAKEN BECAUSE SHE IS SOUND ASLEEP. IF SHE IS WAKED UP SHE WILL START CRYING. SHE HAS HAD MEDS TO MAKE HER SLEEP WELL HER PAIN MEDS.
--- NOTE | 2020-02-14 00:59 | NUR ---
PT CONTINUES TO SLEEP. AT BEDSIDE SLEEPING ALSO.
[2020-02-14 02:10] VITALS: BP 100/47
--- NOTE | 2020-02-14 02:10 | NUR ---
TOOK PT HER PAIN MEDS. WHEN I WALKED IN THE ROOM SHE IS SMILING AND LAUGHING. SHE TOLD ME HOW GOOD SHE FELT AND THAT HER PAIN WAS A 6 NOW. I GAVE HER SOME VISTARIL TODAY AND SHE IS SURE THAT IS WHAT HELPED OR THE COMBO OF HER MEDS. HER BP IS UP TO 100/47. SHE ALMOST A DIFFERENT PERSON AT THIS TIME. SHE STATES THAT SHE HAS ACTUALLY SLEPT TONIGHT. HER GETS HER UP TO [facility] AND DOES VERY WELL WITH HER.
--- NOTE | 2020-02-14 04:14 | NUR ---
PT IS SLEEPING QUIETLY ON HER BACK. VS NOT TAKEN. WILL RETAKE VS AT 0600 WHEN PAIN MEDS ARE DUE AGAIN.
[2020-02-14 06:00] VITALS: BP 95/44
--- NOTE | 2020-02-14 06:00 | NUR ---
WAKED PT UP FOR VS AND MEDS. HER BP IS 95/44 WHICH IS DOWN SOME SINCE 0200. SHE IS NOT CRYING. SHE RATES HER PAIN A 5. SHE STATES SHE CAN MOVE HER LEG NOW. HER IV IS SALINE LOCKED. UNABLE TO REMOVE IV POLE AND TAKE DOWN THE USED BAG BECAUSE IT IS BEHIND HER
[2020-02-14 06:15] LABS: BASOPHILS 0.1 % (0-2); EOSINOPHILS 0.3 % (0-7); HEMATOCRIT 29.1 % (36.0-48.0); HEMOGLOBIN 9.7 g/dL (12-16); IMMATURE GRANULOCYTES 0.3 % (0-5); LYMPHOCYTES 26.1 % (15-50); MCH 30.7 pg (26.0-34.0); MCHC 33.3 g/dL (31.0-37.0); MCV 92.1 fL (80.0-100.0); MEAN PLATELET VOLUME 9.7 fL (7.4-10.4); MONOCYTES 12.4 % (2-11); NEUTROPHILS 60.8 % (40-80); PLATELET COUNT 171 10x3/uL (130-400); RBC 3.16 10x6/uL (4.00-5.40); RDW 13.6 % (11.5-14.5); WBC 7.9 10x3/uL (4.8-10.8)
[2020-02-14 06:53] LABS: CALC OSMOLALITY 275 mosm/kg (275-300); CALCIUM 8.7 mg/dL (8.5-10.1); CARBON DIOXIDE 29.6 mmol/L (21.0-32.0); CHLORIDE - SERUM 104 mmol/L (98-107); CREATININE - SERUM 0.7 mg/dL (0.6-1.3); GLUCOSE 87 mg/dL (74-106); POTASSIUM - SERUM 3.8 mmol/L (3.5-5.1); SODIUM 139 mmol/L (136-145); UREA NITROGEN 9 mg/dL (7-18); eGFR NON AFRICAN AMERICAN > 90 mL/min (90-120)
[2020-02-14 07:42] VITALS: BP 81/39
--- NOTE | 2020-02-14 07:44 | NUR ---
PT IS RESTING IN BED WITH EYES OPEN. RESPIRATIONS ARE EVEN AND UNLABORED. PT IS AAOX 4. PROVENA WOUND VAC NOTED TO RIGHT HIP AND IS WORKING WITHOUT COMPROMISE. PT DENIES PRESENCE OF NUMBNESS/TINGLING TO BLE. BILATERAL PEDAL PULSES ARE PALP. DRESSING TO RIGHT HIP IS CDI. PIV TO LEFT FA IS SL AND FLUSHES WITHOUT DIFFICULTY. PT DENIES PRESENCE OF N/V AT THIS TIME. BED IS IN THE LOWEST POSITION. CALL LIGHT AND BEDSIDE TABLE ARE WITHIN REACH. SIDE RAILS X 2. PT DENIES FURTHER NEEDS. WILL CONT TO MONITOR.
[2020-02-14 11:14] VITALS: BP 98/61
[2020-02-14] MEDS ORDERED: ELIQUIS2.5 MG PO (13:12)
[2020-02-14] MEDS ORDERED: ULTRAM50 MG PO (13:13)
[2020-02-14] MEDS ORDERED: KEFLEX500 MG PO (13:13)
[2020-02-14] MEDS ORDERED: VISTARIL50 MG PO (13:13)
--- NOTE | 2020-02-14 14:05 | MORECARE ---
CASE MANAGEMENT DISCHARGE SUMMARY PATIENT: VANI RAMOS UNIT: [id number] ADM DATE: 02/12/20 AGE: 59 : 62 SEX: F ROOM/BED: D.1210 AUTHOR: BRAVO SCHILLING PHYSICIAN: REFERRING PHYSICIAN: LAURO MARIN DO DATE OF SERVICE: 02/14/20 Discharge Plan Patient Name: VANI ARMOS Facility: [facility]:[place] : 1960 Planned Disposition: Anticipated Discharge Date: Discharge Date: Expected LOS: Initial Reviewer: [email or web address] Initial Review Date: 02/12/2020 Generated: 02/14/20 3:04 pm Comments DCP- Discharge Planning Updated by [email or web address]: Shana Suarez on 02/14/20 1:[address] Patient Name: VANI RAMOS Admission Status: Elective Accout number: [id number] Admission Date: 02-12-2020 : 1960 Admission Diagnosis: Attending: LAURO MARIN Current LOS: 2 Anticipated DC Date: Planned Disposition: Primary Insurance: MEDICAID [place] Discharge Planning Comments: CM met with patient at bedside after explaining CM role and obtaining verbal consent. CM discussed availability / needs of home health, REHAB and medical equipment. STATES HAS ALL EQUIPMENT NEEDED. PLANS TO DC TO HOME TODAY. WOULD LIKE TO DO PT HERE AT [facility]. CM SCHEDULED HER PT TO BEGIN 02/19/20 AT 1PM. CM TO FOLLOW AND ASSIST NEEDED. Shoe Stitcher: Shana Suarez DCPIA - Discharge Planning Initial Assessment Updated by [email or web address]: Shana Suarez on 02/14/20 1:59 pm * Is the patient Alert and Oriented? Yes * Preadmission Environment Home with Family * ADLs Independent * Other Equipment WALKER, SHOWER CHAIR * Community resources currently utilized None * Additional services required to return to the preadmission environment? Yes * Can the patient safely return to the preadmission environment? Yes * Has this patient been hospitalized within the prior 30 days at any hospital? No Patient Name: VANI RAMOS Page [phone] at 1405 All edits/amendments must be made on the electronic document DICTATION DATE: 02/14/201404 LEAD TRAINER: ERASMO 02/14/201404 RPT#: [id number] DC DATE: STATUS: ADM IN [facility] [address] [place] [address] END OF REPORT
--- NOTE | 2020-02-14 15:15 | NUR ---
ALL DISCHARGE INSTRUCTIONS COVERED WITH PT AND PT SPOUSE. PIV TO LEFT FA REMOVED WITH CATHETER TIP INTACT. DRESSING APPLIED. PRINTED RX X 4 GIVEN TO PT. PT DENIES FURTHER QUESTIONS/CONCERNS/NEEDS AT THIS TIME. ALL DISCHARGE PAPERS SIGNED. ROCIO FRIEDMAN ESCORTS PT FROM ROOM VIA WHEELCHAIR. PT THANKS THIS NURSE AND CHECKOUT OPERATOR FOR CARE GIVEN DURING THIS SHIFT. ALL SIGNED DISCHARGE PAPERS PLACED IN PT CHART.
--- NOTE | 2020-02-16 12:57 | MORECARE ---
CASE MANAGEMENT DISCHARGE SUMMARY PATIENT: VANI RAMOS UNIT: [id number] ADM DATE: 02/12/20 AGE: 59 : 62 SEX: F ROOM/BED: D.1210 AUTHOR: BRAVO SCHILLING PHYSICIAN: REFERRING PHYSICIAN: LAURO MARIN DO DATE OF SERVICE: 02/16/20 Discharge Plan Patient Name: VANI RAMOS Facility: [facility]:[place] : 1960 Planned Disposition: Anticipated Discharge Date: Discharge Date: 02/14/2020 Expected LOS: Initial Reviewer: [email or web address] Initial Review Date: 02/12/2020 Generated: 02/16/20 1:57 pm Comments DCP- Discharge Planning Updated by [email or web address]: Shana Suarez on 02/14/20 1:[address] Patient Name: VANI RAMOS Admission Status: Elective Accout number: [id number] Admission Date: 02-12-2020 : 1960 Admission Diagnosis: Attending: LAURO MARIN Current LOS: 2 Anticipated DC Date: Planned Disposition: Primary Insurance: MEDICAID [place] Discharge Planning Comments: CM met with patient at bedside after explaining CM role and obtaining verbal consent. CM discussed availability / needs of home health, REHAB and medical equipment. STATES HAS ALL EQUIPMENT NEEDED. PLANS TO DC TO HOME TODAY. WOULD LIKE TO DO PT HERE AT [facility]. CM SCHEDULED HER PT TO BEGIN 02/19/20 AT 1PM. CM TO FOLLOW AND ASSIST NEEDED. Roll Cutter: Shana Suarez DCPIA - Discharge Planning Initial Assessment Updated by [email or web address]: Shana Suarez on 02/14/20 1:59 pm * Is the patient Alert and Oriented? Yes * Preadmission Environment Home with Family * ADLs Independent * Other Equipment WALKER, SHOWER CHAIR * Community resources currently utilized None * Additional services required to return to the preadmission environment? Yes * Can the patient safely return to the preadmission environment? Yes * Has this patient been hospitalized within the prior 30 days at any hospital? No Last DP export: 02/14/20 1:05 pm Patient Name: VANI RAMOS Page [phone] at 1257 All edits/amendments must be made on the electronic document DICTATION DATE: 02/16/20 1257 ON AWAKE COUNSELOR: ERASMO 02/16/20 1257 RPT#: [id number] DC DATE:02/14/20 STATUS: DIS IN [facility] [address] [place] [address] END OF REPORT
== END 2020-02-14 16:03 | disposition home or self-care (01) | DRG 470 ==
LOC: D.SDCHOLD 02-06 10:00 → D.M3 02-12 05:42 → D.SDCHOLD 02-12 07:30 → D.M3 02-12 11:40
PROVIDERS: Family Medicine; ADMIT Orthopaedic Surgery; ATTEND Orthopaedic Surgery
PROC: 0SR90JZ Replacement of Right Hip Joint with Synthetic Substitute, Open Approach (ICD-10-PCS; principal; 2020-02-12 07:30)
DX: M16.11 Unilateral primary osteoarthritis, right hip (principal); D62 Acute posthemorrhagic anemia; G89.29 Other chronic pain; M54.9 Dorsalgia, unspecified; K59.09 Other constipation; K21.9 Gastro-esophageal reflux disease without esophagitis; H35.30 Unspecified macular degeneration; Z87.891 Personal history of nicotine dependence

== ENCOUNTER → 2020-02-07 09:54 | Outpatient (CLI) | payer MEDICAID ==
[2019-04-01 16:37] VITALS: BMI 35.7
[~2020-02-07 09:54] MED LIST changes: +ELIQUIS2.5 MG PO; +KEFLEX500 MG PO; +ULTRAM50 MG PO; +VISTARIL50 MG PO
== END | disposition home or self-care (01) ==
LOC: D.HCCARDIO 09:54
PROVIDERS: ATTEND Internal Medicine Cardiovascular Disease
DX: I20.9 Angina pectoris, unspecified (principal)

== ENCOUNTER 2020-03-13 06:40 | Day surgery (SDC) | payer MEDICAID ==
[~2020-03-13] VITALS: Ht 157.5 cm; Wt 63.3 kg
--- NOTE | ~2020-03-13 | HEMODYNAMI ---
PATIENT:VANI RAMOS MEDICAL RECORD: [id number] : 62 LOCATION:[facility] ADMISSION DATE: 03/13/20 Generatedon:03/13/20208:35 Patient name: VANI RAMOS Patient #: [id number] : 1960 Date of study: 03/13/2020 Page: Of Hemodynamic Procedure Report Patient Data Patient Demographics Procedure consent was obtained First Name: VANI Gender: Female Last Name: RACHEL : 1960 Middle Initial: CAYDEN Age: 59 year(s) Patient #: [id number] Race: SSN: [id number] Additional ID: [id number] Contact details Address: [address] [place] [address] State: [place] City: [place] Zip code: [address] Past Medical History Performed procedures and imaging results Date Procedure Procedure Results Comments Stress testing Positive->Intermediate with SPECT MPI risk Allergies Allergen Reaction Date Comments Reported Other allergy 03/13/2020 NSAIDS Admission Admission Data Admission Date: 03/13/2020 Admission Time: 6:40 Arrival Date: 03/13/2020 Arrival Time: 0:00 Admit Source: Other Insurance Payor: Medicaid [facility] #: [id number] Height (in.): 61.81 BSA: 1.63 (m2) Height (cm.): 157 BMI: 25.56 (kg/m2) Weight (lbs.): 138.89 Weight (kg.): 63 Lab Results Lab Result Date: 03/13/2020 Lab Result Time: 7:10 Biochemistry Name Units Result Min Max BUN mg/dl 16 --(---*)-- 7 18 Creatinine mg/dl 0.7 --(*---)-- 0.6 1.3 eGFR ml/min 90 --(*---)-- 90 120 NONAFRICAN CBC Name Units Result Min Max Hematocrit % 38.7 *-(----)-- 42 54 Hemoglobin g/dl 12.6 -*(----)-- 13.5 17.5 Procedure Procedure Types Cath Procedure Diagnostic Procedure [facility] w/Coronaries FFR/IVUS FFR Initial Sedation Charges Moderate Sedation up to 30 minutes PCI Procedure Hemochron ACT Test Procedure Description Procedure Date Procedure Date: 03/13/2020 Procedure Start Time: 8:02 Procedure End Time: 8:31 Procedure Staff Name Function Antoine Underwood MD Performing Physician Avtar Lao RT Monitor Merari Miranda RT Scrub Jonathan Patrick RN Nurse Procedure Data Cath Procedure Fluoroscopy Diagnostic fluoroscopy Total fluoroscopy Time: 3.6 time: 3.6 min min Diagnostic fluoroscopy Total fluoroscopy dose: 398 dose: 398 mGy mGy Contrast Material Contrast Material Type Amount (ml) Isovue 300 67 Entry Location Entry Primary Successful Side Size Upsize Upsize Entry Closure Succe ssful Closure Location (Fr) 1 (Fr) 2 (Fr) Remarks Device Remarks Femoral Right 5 Fr 6 Fr Perclose artery Short ProGlide Estimated blood loss: 10 ml Diagnostic catheters Device Type Used For End Catheter Placement MULTIPACK JL 4.0 5Fr Procedure catheter MULTIPACK 3DRC 5Fr Procedure catheter MULTIPACK Pigtail 5 Fr Procedure catheter Procedure Complications No complications Procedure Medications Medication Administration Route Dosage Oxygen etCO2 Nasal cannula 2 l/min Heparin Flush Bag added to field 2 bags (1000units/500ml NS) 0.9% NaCl I.V. 100 ml/hr Lidocaine 2% added to field 20 Fentanyl I.V. 50 mcg Versed I.V. 1 mg Fentanyl I.V. 50 mcg Versed I.V. 1 mg Fentanyl I.V. 50 mcg Versed I.V. 1 mg Fentanyl I.V. 50 mcg Versed I.V. 1 mg Heparin Bolus I.V. 3000 units Hemodynamics Rest BSA: 1.63 (m2) HGB: 12.6 (g/dl) O2 Consumption: Estimated: 150.24 (ml/min) O2 Co nsumption indexed: Estimated:92.17 (ml/min/m) Heart Rate: 62 (bpm) Gradients Valve Time Site Site Mean SEP/DFP Peak To Heart Use 1 2 (mmHg) (sec/min) Peak Rate (mmHg) (bpm) Aortic 8:11 LV AO 38 Snapshots Pre Cath Intra NCS Post Cath Vital Signs Time Heart Resp SPO2 etCO2 NIBP Rhythm Pain Sedation Rate (ipm) (%) (mmHg) (mmHg) Status Level (bpm) 7:54:55 56 17 100 31.4 110/60(87) NSR 0 (11) 10(A) , No pain 7:59:07 65 16 100 32.9 102/55(70) NSR 0 (11) 10(A) , No pain 8:03:15 61 16 100 0 95/56(68) NSR 0 (11) 10(A) , No pain 8:07:23 64 17 98 0 91/51(72) NSR 0 (11) 9(A) , No pain 8:11:26 72 17 97 19.4 104/58(76) NSR 0 (11) 9(A) , No pain 8:15:34 71 16 96 35.9 102/58(75) NSR 0 (11) 9(A) , No pain 8:19:44 77 16 94 36.6 96/54(70) NSR 0 (11) 9(A) , No pain 8:23:50 83 16 97 31.4 103/59(77) NSR 0 (11) 9(A) , No pain 8:27:58 85 16 97 24.6 117/66(91) NSR 0 (11) 10(A) , No pain Medications Time Medication Route Dose Verified Delivered Reason Notes Effectiveness by by 7:49:16 Oxygen etCO2 2 Antoine Jonathan Per physician Nasal l/min Kj Patrick RN cannula 7:49:24 Heparin Flush added 2 Antoine Jonathan used for Bag to bags Kj Patrick comfort filler (1000units/500ml field NS) 7:49:32 0.9% NaCl I.V. 100 Antoine Jonathan Per physician ml/hr Kj Patrick RN 7:52:08 Lidocaine 2% added 20ml Antoine Jonathan for local to vial Kj Patrick RN anesthetic field 8:00:11 Fentanyl I.V. 50 Antoine Jonathan for sedation mcg Kj Patrick RN 8:00:18 Versed I.V. 1 mg Antoine Jonathan for sedation Kj Patrick RN 8:02:17 Fentanyl I.V. 50 Antoine Jonathan for sedation mcg Kj Patrick RN 8:02:21 Versed I.V. 1 mg Antoine Jonathan for sedation Kj Patrick RN 8:05:06 Fentanyl I.V. 50 Antoine Jonathan for sedation mcg Kj Patrick RN 8:05:11 Versed I.V. 1 mg Antoine Jonathan for sedation Kj Patrick RN 8:07:09 Fentanyl I.V. 50 Antoine Jonathan for sedation mcg Kj Patrick RN 8:07:17 Versed I.V. 1 mg Antoine Jonathan for sedation Kj Patrick RN 8:15:35 Heparin Bolus I.V. 3000 Antoine Jonathan for units Kj Patrick RN anticoagulation Procedure Log Time Note 7:17:59 Informed consent obtained and on chart 7:18:39 Admit Source: Other 7:18:42 Arrival Date: 03/13/2020 12:00:00 AM 7:18:54 Insurance Payor : Medicaid 7:20:09 Patient Height : 61.81 inches 7:20:12 Patient Weight : 138.89 lbs 7:20:27 Diagnostic Cath Status : Elective 7:20:37 ACC Patient presents with Stable Angina CCS Anginal Class 2--Slight limitation of ordinary activity. 7:20:40 Procedure Status Elective Heart Cath (OP). 7:20:42 Time tracking: Regular hours (M-F 7:00 - 5:00) 7:20:45 Plan of Care:Hemodynamics will remain stable., Cardiac rhythm will remain stable., Comfort level will be maintained., Respiratory function will remain adequate., Patient/ family verbilizes understanding of procedure., Procedure tolerated without complication., Recovers from procedure without complications.. 7:20:53 H&P Date Dictated: 03/05/2020 Within 30 days and on chart., H&P Addendum completed by physician on day of procedure. (MUST COMPLETE FOR ALL OUTPATIENTS). 7:38:51 Jonathan Patrick RN sent for patient. Start room use. 7:49:16 Oxygen 2 l/min etCO2 Nasal cannula was administered by Jonathan Patrick RN; Per physician; Verbal order read back and verified. 7:49:24 Heparin Flush Bag (1000units/500ml NS) 2 bags added to field was administered by Jonathan Patrick RN; used for procedure; Verbal order read back and verified. 7:49:32 0.9% NaCl 100 ml/hr I.V. was administered by Jonathan Patrick RN; Per physician; Verbal order read back and verified. 7:52:08 Lidocaine 2% 20ml vial added to field was administered by Jonathan Patrick RN; for local anesthetic; Verbal order read back and verified. 7:53:44 Patient received from Pre/Post Procedure Room to CCL 1 Alert and oriented. Tansferred to table in Supine position. 7:53:45 Warm blankets applied, and isis hugger turned on for patient comfort. 7:53:46 Correct patient and procedure confirmed by team. 7:53:46 ECG and BP/O2 sat monitors applied to patient. 7:53:48 Vital chart was started 7:53:49 Baseline sample Acquired. 7:53:53 Rhythm: sinus rhythm 7:54:34 Full Disclosure recording started 7:54:39 Pre-procedure instructions explained to patient. 7:54:39 Pre-op teaching completed and patient verbalized understanding. 7:54:41 Family in waiting room. 7:54:42 Patient NPO since Breakfast. 7:55:17 Patient allergic to Other allergyNSAIDS 7:55:19 Is the patient allergic to Iodine/contrast media? No. 7:55:20 Is patient on blood thinner?No 7:55:21 Patient diabetic? No. 7:55:24 Previous problem with sedation/anesthesia? No ? 7:55:26 Snore? No 7:55:27 Sleep apnea? No 7:55:28 Deviated septum? No 7:55:29 Opens mouth fully? Yes 7:55:29 Sticks out tongue? Yes 7:55:31 Airway obstruction? No ? 7:55:53 Dentures? No ? 7:57:20 Pre procedure: right posterior tibial pulse 2+ Normal; easily identifiable; not easily obliterated 7:57:27 Patient pain scale 0/10 ?. 7:57:36 IV patent on arrival in left forearm with 0.9% NaCl at O. 7:59:12 Lab Result : BUN 16 mg/dl 7:59:12 Lab Result : Creatinine 0.7 mg/dl 7:59:12 Lab Result : Hemoglobin 12.6 g/dl 7:59:12 Lab Result : eGFR NONAFRICAN 90 ml/min 7:59:12 Lab Result : Hematocrit 38.7 % 7:59:15 Lab results completed and on chart. 7:59:27 Stress Test: yes; abnormal ANTERIOR 7:59:32 Left groin area was prepped with chlora-prep and draped in sterile fashion 7:59:32 Alarms reviewed by R. N. 7:59:33 Sharps counted by scrub and verified by R.N. 7:59:36 Use device set Femoral Dx 7:59:37 ACIST Syringe (48536) opened to sterile field. 7:59:38 Bag Decanter (2002S) opened to sterile field. 7:59:38 Medline Cath Pack ([id number]) opened to sterile field. 7:59:39 ACIST Hand Control (57374) opened to sterile field. 7:59:39 ACIST Manifold (00355) opened to sterile field. 7:59:40 Tegaderm 4 x 4 (1626W) opened to sterile field. 7:59:41 DIAGNOSTIC Multipack 5Fr catheter set (UL0685) opened to sterile field. 7:59:43 SHEATH 5FR [place] (OKP467) opened to sterile field. 7:59:44 EMERALD Guide Wire (081-760) opened to sterile field. 7:59:50 Physician arrived 7:59:50 --------ALL STOP TIME OUT------ 7:59:51 Final Timeout: patient, procedure, and site verified with staff and physician. All members of the team are in agreement. 7:59:52 Left groin site verified by team. 7:59:55 Fire Safety Assessment: A--An alcohol-based skin anteseptic being used preoperatively., C--Open oxygen or nitrous oxide is being used., D--An ESU, laser, or fiber-optic light is being used. 7:59:57 Physical assessment completed. ASA score P 2 - A patient with mild systemic disease as per Antoine Underwood MD. 7:59:59 1) 90+ Normal kidney functon but urine findings or structural abnormalities or genetic trait point to kidney disease. 8:00:01 Maximum allowable contrast dose (3.7 X eGFR X 0.75)250 ml. 8:00:04 Sedation plan: IV Moderate Sedation Medication:Versed, Fentanyl 8:00:11 Fentanyl 50 mcg I.V. was administered by Jonathan Patrick RN; for sedation; Verbal order read back and verified. 8:00:18 Versed 1 mg I.V. was administered by Jonathan Patrick RN; for sedation; Verbal order read back and verified. 8:02:17 Fentanyl 50 mcg I.V. was administered by Jonathan Patrick RN; for sedation; Verbal order read back and verified. 8:02:21 Versed 1 mg I.V. was administered by Jonathan Patrick RN; for sedation; Verbal order read back and verified. 8:02:56 Procedure started. 8:02:59 Local anesthetic to left femerol artery with Lidocaine 2% by Antoine Underwood MD.INITIAL ACCESS ONLY 8:04:24 A 5 Fr sheath was inserted into the Right Femoral artery 8:04:28 Zero performed for pressure channel P1 8:05:06 Fentanyl 50 mcg I.V. was administered by Jonathan Patrick RN; for sedation; Verbal order read back and verified. 8:05:11 Versed 1 mg I.V. was administered by Jonathan Patrick RN; for sedation; Verbal order read back and verified. 8:05:18 A MULTIPACK JL 4.0 5Fr catheter was advanced over the wire and used for Procedure. 8:06:25 Catheter exchanged over wire. 8:06:29 A MULTIPACK 3DRC 5Fr catheter was advanced over the wire and used for Procedure. 8:07:09 Fentanyl 50 mcg I.V. was administered by Jonathan Patrick RN; for sedation; Verbal order read back and verified. 8:07:17 Versed 1 mg I.V. was administered by Jonathan Patrick RN; for sedation; Verbal order read back and verified. 8:07:51 RCA angiography performed. 8:08:24 Catheter exchanged over wire. 8:08:38 A MULTIPACK Pigtail 5 Fr catheter was advanced over the wire and used for Procedure. 8:10:16 LV gram done using FUNK 8:10:18 Injector settings: Ml/sec: 10, Volume: 20, 8:10:20 LV hemodynamics recorded. 8:10:34 EF : 45 % 8:10:55 Catheter removed. 8:11:10 INFLATOR Merit BasixCompak (PK7713) opened to sterile field. 8:11:10 [place] Verrata Plus pressure wire (79996V) opened to sterile field. 8:11:10 SHEATH 6FR [place] (JMV018) opened to sterile field. 8:11:29 GUIDE 6FR XBLAD 3.5 catheter ([id number]) opened to sterile field. 8:12:03 TUBING High Pressure Extension Tubing (Kj) ([id number]) opened to sterile field. 8:13:59 Sheath upsized to a 6 Fr Short. 8:14:08 6 Fr XBLAD 3.5 guide catheter was inserted over the wire 8:14:54 FFR/IFR wire advanced. 8:15:35 Heparin Bolus 3000 units I.V. was administered by Jonathan Patrick RN; for anticoagulation; Verbal order read back and verified. 8:15:59 Wire advanced across lesion. 8:18:35 mCirc lesion measured at 1.0 with IFR 8:18:50 Wire removed. 8:18:51 Guide catheter removed. 8:20:11 Sheath removed intact; hemostasis achieved with Perclose ProGlide to the Right Femoral artery. 8:22:00 PERCLOSE Proglide 6FR ( [id number]) opened to sterile field. 8:24:32 ACT drawn and resulted at 260 seconds. (normal therapeutic range 180-240 seconds). 8:25:31 Procedure ended.(Physican Out) 8:25:34 Fluoroscopy time 03.60 minutes. 8:25:39 Fluoroscopy dose: 398 mGy 8:25:39 Flurop Dose total: 398 8:25:51 Dose Area Product 01414 mGy/cm. 8:25:55 Contrast amount:Isovue 300 67ml. 8:25:57 Maximum allowable dose exceeded? No. 8:25:58 Sharps counted by scrub and verified by R.N. 8:25:59 Insertion/operative site no bleeding no hematoma. 8:26:01 Post-op/insertion site Right Femoral artery dressed using a 4 x 4 and Tegaderm. 8:26:05 Post right femoral artery:stable, soft, clean and dry 8:26:08 Post Procedure Pulses reassessed and unchanged 8:26:10 Post-procedure physical assessment completed. ASA score P 2 - A patient with mild systemic disease as per Antoine Underwood MD. 8:26:12 Post procedure rhythm: unchanged. 8:26:15 Estimated blood loss: 10 ml 8:26:17 Post procedure instruction explained to patient.Patient verbalizes understanding. 8:26:17 Patient needs reinforcement of post procedure teaching. 8:26:18 Procedure and supply charges have been captured, reviewed, submitted and are correct. 8:26:37 Procedure type changed to Cath procedure, Diagnostic procedure, LHC, LHC w/Coronaries, FFR/IVUS, FFR Initial, Sedation Charges, Moderate Sedation up to 30 minutes, PCI procedure, Hemochron ACT Test 8:26:46 Patient needs reinforcement of post procedure teaching. 8:28:22 Procedure Complication : No complications 8:30:59 Vital chart was stopped 8:31:02 Operative report dictated upon procedure completion. 8:31:02 See physician's report for complete and final results. 8:31:04 Report given to Pre/Post Procedure Room. 8:31:05 Patient transfered to Pre/Post Procedure Room with Stretcher. 8:31:06 Procedure ended. 8:31:06 Full Disclosure recording stopped 8:31:10 End room use (Document Last) 8:34:22 Avtar Lao RT(R) was relieved by Jonathan Patrick RN as monitoring person 8:34:57 Jonathan Patrick RN was relieved by Avtar Lao RT(R) as monitoring person Device Usage Item Name Manufacture Quantity Catalog Hospital Part Current Minima l Lot# / Number Charge Number Stock Stock Serial# Code ACIST Acist 1 25481 369122 902325 685355 20 Syringe Medical (36501) Systems Inc Bag Microtek 1 2001S 881552 43939 115076 5 Decanter Medical Inc. () Medline Medline 1 [id number] 928279 25048 827739 5 Cath Pack (FOPQ69426) ACIST Hand Acist 1 44805 899151 206067 169248 5 Control Medical (68501) Systems Inc ACIST Acist 1 84153 472455 943201 736108 5 Manifold Medical (89276) Systems Inc Tegaderm 4 3M 1 1626W 019119 936742 393026 5 x 4 (1626W) DIAGNOSTIC Cardinal 1 FE9403 919733 00677 080333 30 Buzzinate [employer] 5Fr catheter set (GF6729) SHEATH 5FR Terumo 1 HLV891 593359 657245 966066 5 [place] (GPS460) EMERALD Cardinal 1 502-455 728535 157173 340455 5 Guide Wire TheraVid (952-815) MULTIPACK Cardinal 1 311540 5 JL 4.0 5Fr Health catheter MULTIPACK Cardinal 1 572823 5 3DRC 5Fr Health catheter MULTIPACK Cardinal 1 046123 5 Pigtail 5 Health Fr catheter INFLATOR Merit 1 MQ5943 033702 602784 986682 15 Merit Medical BasixCompak (DL0347) [place] 1 71541W 370258 440664729 736478 5 Verrata Plus pressure wire (81970C) SHEATH 6FR Terumo 1 HHO723 943175 929281 780143 40 [place] (NLJ713) TUBING High Merit 1 [id number] 229876 69557 636074 10 Pressure Medical Extension Tubing (Kj) (QH7541H) PERCLOSE Canela 1 77173-773 134648 111867 669387 5 Proglide Vascular 6FR ( [id number]) GUIDE 6FR Cardinal 1 [id number] 936260 275465 370551 10 XBLAD 3.5 Health catheter ([id number]) Signature Audit [place] Stage Time Signature Unsigned Intra-Procedure 03/13/2020 Avtar Lao 8:33:06 AM RT(R) Intra-Procedure 03/13/2020 Jonathan Patrick 8:34:47 AM RN Intra-Procedure 03/13/2020 Antoine Underwood MD 8:35:18 AM [id number] [place] [address]
[2020-03-13] MEDS ORDERED: TRAZODONE HCL150 MG PO (06:55)
[2020-03-13] MEDS ORDERED: PROBIOTIC1 EAC1 PO (06:56)
[2020-03-13 07:11] VITALS: BP 102/51; Ht 157.5 cm; Wt 63.3 kg
[2020-03-13 07:39] LABS: BASOPHILS 0.3 % (0-2); EOSINOPHILS 1.6 % (0-7); HEMATOCRIT 38.7 % (36.0-48.0); HEMOGLOBIN 12.6 g/dL (12-16); IMMATURE GRANULOCYTES 0.2 % (0-5); MCH 29.1 pg (26.0-34.0); MCHC 32.6 g/dL (31.0-37.0); MCV 89.4 fL (80.0-100.0); MONOCYTES 7.1 % (2-11); NEUTROPHILS 53.8 % (40-80); RBC 4.33 10x6/uL (4.00-5.40); RDW 13.9 % (11.5-14.5); WBC 5.8 10x3/uL (4.8-10.8)
[2020-03-13 07:40] LABS: PLATELET COUNT 223 10x3/uL (130-400)
[2020-03-13 07:49] LABS: CALC OSMOLALITY 281 mosm/kg (275-300); CALCIUM 9.1 mg/dL (8.5-10.1); CARBON DIOXIDE 26.9 mmol/L (21.0-32.0); CHLORIDE - SERUM 106 mmol/L (98-107); CREATININE - SERUM 0.7 mg/dL (0.6-1.3); GLUCOSE 93 mg/dL (74-106); POTASSIUM - SERUM 3.4 mmol/L (3.5-5.1); SODIUM 141 mmol/L (136-145); UREA NITROGEN 16 mg/dL (7-18); eGFR NON AFRICAN AMERICAN > 90 mL/min (90-120)
[2020-03-13 08:01] LABS: ALT (SGPT) 17 U/L (10-68); CHOLESTEROL, TOTAL 254 mg/dL (0-200); HDL CHOLESTEROL 63 mg/dL (32-96); LDL CHOLESTEROL 183 mg/dL (0-100); LDL-HDL RATIO 2.9 ratio (1.5-3.5); TRIGLYCERIDE 44 mg/dL (30-200)
--- NOTE | 2020-03-13 08:43 | NUR ---
PT ARRIVED BY STRETCHER. PLACED ON MONITORS. ASSESSMENT COMPLETED. VSS. PT C/O BACK PAIN "CHRONIC". RATES IT A 8/10 AT THIS TIME. VERY TEARFUL. DR. TRAN AWARE AND ORDERS RECEIVED FOR PAIN MEDICATION. FAMILY AT BEDSIDE. CALL LIGHT WITHIN REACH.
--- NOTE | 2020-03-13 08:58 | NUR ---
LEFT GROIN DRESSING C/D/I. NO S/S OF HEMATOMA NOTED. CALL LIGHT WITHIN REACH. VSS AT THIS TIME. FAMILY AT BEDSIDE. LEFT PEDAL PULSE IS PALPABLE. PT GIVEN PAIN MEDICATION PER MD ORDER. ATTMEPTED TO REPOSITION FOR COMFORT.
--- NOTE | 2020-03-13 09:42 | NUR ---
LEFT GROIN DRESSING C/D/I. NO S/S OF HEMATOMA NOTED. LEFT PEDAL PULSE PALPABLE AT THIS TIME. HEAD OF BED INC TO 30 DEGREES. TOLERATED WELL. PT REPORTS PAIN IS MUCH BETTER. SHE IS SMILING AND LAUGHTING AND RATES IT A 2/[address] TRAN ROUNDED AND SPOKE WITH PT AND PT'S FAMILY. PT SET UP WITH SANDWICH TRAY AND DRINK AT THIS TIME.
--- NOTE | 2020-03-13 10:35 | NUR ---
LEFT GROIN DRESSING C/D/I. NO S/S OF HEMATOMA NOTED. CALL LIGHT WITHIN REACH. VSS AT THIS TIME. LEFT PEDAL PULSE PALPABLE. PIV D/C'D WITH CATH TIP INTACT. TOLERATED WELL. DISCUSSED DISCHARGE INSTRUCTIONS WITH PT AND PT'S FAMILY. THEY VOICED UNDERSTANDING. PT INSTRUCTED TO GET UP AND DRESSED AT THIS TIME. FAMILY AT BEDSIDE TO ASSIST.
--- NOTE | 2020-03-13 10:45 | NUR ---
PT AMBULATED TO RESTROOM. VOIDED WITHOUT DIFFICULTY. STEADY GAIT NOTED. LEFT GROIN DRESSING C/D/I. NO S/S OF HEMATOMA NOTED. PT TAKEN OUT TO VEHICLE BY WHEELCHAIR. NO S/S OF DISTRESS NOTED. ALL BELONGINGS AND PAPERWORK IN HAND.
== END 2020-03-13 10:45 | disposition home or self-care (01) ==
LOC: D.CATH 06:40
PROVIDERS: ATTEND Internal Medicine Cardiovascular Disease
DX: I20.9 Angina pectoris, unspecified (principal); R94.39 Abnormal result of other cardiovascular function study; R07.9 Chest pain, unspecified; R79.82 Elevated C-reactive protein (CRP)

== ENCOUNTER → 2020-10-07 18:12 | Outpatient (CLI) | payer MEDICAID ==
[2020-03-13 07:11] VITALS: BMI 25.5
[~2020-10-07 18:12] MED LIST changes: +PROBIOTIC1 EAC1 PO; +TRAZODONE HCL150 MG PO
== END | disposition home or self-care (01) ==
LOC: D.LABREF 18:12
PROVIDERS: ATTEND Orthopaedic Surgery
DX: M16.12 Unilateral primary osteoarthritis, left hip (principal)

== ENCOUNTER 2020-11-25 05:30 | Observation (INO) | payer MEDICAID ==
[2020-11-21 11:41] LABS: BILIRUBIN NEGATIVE (NEGATIVE); KETONE NEGATIVE (NEGATIVE); NITRITE NEGATIVE (NEGATIVE); UROBILINOGEN NORMAL mg/dL (< 2)
[2020-11-21 12:01] LABS: CALC OSMOLALITY 277 mosm/kg (275-300); CALCIUM 9.6 mg/dL (8.5-10.1); CARBON DIOXIDE 27.9 mmol/L (21.0-32.0); CHLORIDE - SERUM 103 mmol/L (98-107); CREATININE - SERUM 0.7 mg/dL (0.6-1.3); GLUCOSE 96 mg/dL (74-106); SODIUM 140 mmol/L (136-145); UREA NITROGEN 10 mg/dL (7-18); eGFR NON AFRICAN AMERICAN > 90 mL/min (90-120)
[2020-11-21 12:07] LABS: BASOPHILS 0.3 % (0-2); EOSINOPHILS 0.9 % (0-7); HEMATOCRIT 43.4 % (36.0-48.0); HEMOGLOBIN 14.5 g/dL (12-16); IMMATURE GRANULOCYTES 0.1 % (0-5); LYMPHOCYTE ABS# 2.57 10x3/uL (1.18-3.74); LYMPHOCYTES 33.6 % (15-50); MCH 28.6 pg (26.0-34.0); MCHC 33.4 g/dL (31.0-37.0); MCV 85.6 fL (80.0-100.0); MEAN PLATELET VOLUME 9.7 fL (7.4-10.4); NEUTROPHIL ABS# 4.36 10x3/uL (1.56-6.13); NEUTROPHILS 57.1 % (40-80); RBC 5.07 10x6/uL (4.00-5.40); RDW 14.5 % (11.5-14.5); WBC 7.6 10x3/uL (4.8-10.8)
[2020-11-21 12:12] LABS: APTT 31.1 SECONDS (22.8-39.4); INR 1.05 (0.85-1.17); PROTIME 12.6 SECONDS (11.6-15.0)
[2020-11-21 12:42] LABS: PLATELET COUNT 303 10x3/uL (130-400)
[~2020-11-25] VITALS: Ht 157.5 cm; Wt 67.7 kg
[2020-11-25] VITALS (12 sets, daily range): BP systolic 83–104; BP diastolic 52–74; Ht 157.5 cm; Wt 67.7 kg
[2020-11-25] MEDS ORDERED: ZETIA10 MG (06:21)
--- NOTE | 2020-11-25 11:25 | NUR ---
RECEIVED TO ROOM 1208 VIA BED FROM PACU. A/O X3. NO C/O PAIN OR DISCOMFORT AT THIS TIME. DRESSING TO LEFT HIP DRY AND INTACT. DENIES NEEDS. AT BEDSIDE.
--- NOTE | 2020-11-25 12:30 | NUR ---
ATE ABOUT HALF OF LUNCH TRAY. REFUSED OFFER OF ALTERNATIVE FOOD. DENIES NEEDS.
--- NOTE | 2020-11-25 13:30 | NUR ---
AMBULATED IN [facility] WITH PT USING RW. NO C/O INCREASED PAIN WITH ACTIVITY.
--- NOTE | 2020-11-25 13:49 | OP ---
PATIENT NAME: VANI RAMOS MEDICAL RECORD: [id number] :62 LOCATION:D. D.1208 ADMISSION DATE:11/25/20 SURGEON: SALVADOR MARIN DO DATE OF OPERATION: 11/25/2020 PROCEDURE PERFORMED: Left total hip arthroplasty. PREOPERATIVE DIAGNOSIS: Left hip osteoarthritis. POSTOPERATIVE DIAGNOSIS: Left hip osteoarthritis. INDICATIONS: Ms. Ramos is a 60-year-old female who has had left hip pain for quite some time. She has tried all manner of nonoperative treatment to no avail. She is tired of dealing with pain and wants something done surgically. She is aware of the risks including infection, bleeding, damage to nerves or vessels, need for further surgery, continued pain, failure of implants, fracture, blood clot and even and she signed consent. SURGEON: Salvador Marin DO DESCRIPTION OF PROCEDURE: The patient was taken to the operative suite, laid in supine position, given general anesthetic and intubated. She was given a gram of Ancef, 80 mg of gentamicin, gram of TXA. She was positioned on the [place] table. The left hip was prepped and draped in a sterile fashion. A timeout was performed and everyone was in agreeance with the correct side, site, patient, and procedure. I then began by making an incision over tensor fasciae latae muscle and made careful dissection down to the muscle, took the fascia anterior muscle belly posteriorly, opened up the rectus interval, rectus medial and tensor fasciae latae laterally, encountered the ascending branch of lateral femoral circumflex, tied it off and coagulated and cut it. I then put Hohmann's around the neck and the capsule, and opened up the capsule, tagged it and put Hohmann's around the neck of the femur and cut it, remove the head. I then removed the labrum and the pulvinar, and started reaming under fluoroscopy, reamed up to 48, impacted 48 cup and liner and then exposed the femur. I then used a canal finder and cookie cutter and broached up to a 10, stem 10 was trialed with a -6, it was too short and went with a standard neck length and it was equal lengths to the right. I then removed the trials and put the 10 stem in with the standard neck with a dual mobility head and reduced it. It was equal lengths to the right on x-ray and AP pelvis. No fracture is seen in the femur. The stem was in good position. We then irrigated with 10% povidone-iodine and 500 mL of ormal saline solution and irrigated out with over a liter of normal saline. Kyler Osuna, certified dental assistant then put Brenda and vancomycin and tobramycin powder in, closed the tensor fascia curt fascia with #1 Vicryl in [id number] and running locking stitch and the skin with 2-0 Vicryl after placing a Kerecis patch at the apex of the incision due to her pannus hanging over to give it some reinforcement. I then closed the skin with 2-0 Vicryl in inverted interrupted fashion, 4-0 Monocryl ran on the skin and then Prineo glue on the skin. She was then dressed with a Telfa and Tegaderm, awakened and taken to recovery in stable condition. Given another gram of TXA at closing BLOOD LOSS: 300 mL. COMPLICATIONS: None. OPERATIVE REPORT [id number] VANI RAMOS TRANSINT:[id number] Voice Confirmation ID: [id number] DOCUMENT ID: [id number] SALVADOR MARIN DO at 1349 CC: [id number] DICTATION DATE: 11/25/20914 TEAR DOWN MAN: 11/25/[address] [facility] [address] [place] [address]
--- NOTE | 2020-11-25 18:00 | NUR ---
UP TO BR WITH SBA. VOIDED WITHOUT DIFFICULTY. ATE ALL OF SUPPER SHE WANTED. DENIES NEEDS. NO CHANGES NOTED. REQUESTED AND GIVEN ONE 5MG PERCOCET PO FOR C/O LEFT HIP PAIN LEVEL 6. WILL MONITOR.
--- NOTE | 2020-11-25 20:00 | NUR ---
ALERT SITTING UP IN BED DENIES PAIN OR NEEDS AT THIS TIME, SEE SHIFT ASSESSMENT CALL LIGHT IN REACH
[2020-11-26] VITALS: BP 125/67
[2020-11-26 05:00] VITALS: BP 129/79
--- NOTE | 2020-11-26 05:00 | NUR ---
PT RESTING WITH EYES CLOSED, AROUSES TO SOFT VERBAL STIMULATON, VS OBTAINED, PT UP TO BR VIA WALKER WITH ASSISTANCE, PT VOIDED WITH NO DIFFICULTY, PT BACK TO BED, SCD'S RECONNECTED AND WORKING PROPERLY, PT REQUESTS PAIN MED, INFORMED PT THAT TANO JON RN CHARGE NURSE WILL BE IN TO ADM, PT VERBALIZES UNDERSTANDING, DENIES FURTHER NEEDS
[2020-11-26] MEDS ORDERED: ELIQUIS2.5 MG PO (06:09)
[2020-11-26] MEDS ORDERED: PERCOCET 10-321 EAC1 PO (06:10)
[2020-11-26] MEDS ORDERED: VISTARIL50 MG PO (06:10)
[2020-11-26 07:06] LABS: BASOPHILS 0.4 % (0-2); EOSINOPHILS 0.7 % (0-7); HEMOGLOBIN 10.6 g/dL (12-16); LYMPHOCYTES 31.3 % (15-50); MCH 28.9 pg (26.0-34.0); MCHC 34.2 g/dL (31.0-37.0); MCV 84.4 fL (80.0-100.0); MEAN PLATELET VOLUME 7.3 fL (7.4-10.4); MONOCYTES 10.2 % (2-11); NEUTROPHILS 57.4 % (40-80); PLATELET COUNT 266 10x3/uL (130-400); RBC 3.67 10x6/uL (4.00-5.40); RDW 15.6 % (11.5-14.5); WBC 9.3 10x3/uL (4.8-10.8)
[2020-11-26 07:17] LABS: ALBUMIN 3.1 g/dL (3.4-5.0); ALKALINE PHOSPHATASE 66 U/L (30-120); ALT (SGPT) 22 U/L (10-68); BILIRUBIN - TOTAL 0.25 mg/dL (0.2-1.3); CALC OSMOLALITY 276 mosm/kg (275-300); CALCIUM 8.2 mg/dL (8.5-10.1); CARBON DIOXIDE 28.1 mmol/L (21.0-32.0); CHLORIDE - SERUM 105 mmol/L (98-107); CREATININE - SERUM 0.8 mg/dL (0.6-1.3); GLUCOSE 87 mg/dL (74-106); MAGNESIUM - SERUM 1.9 mg/dL (1.8-2.4); POTASSIUM - SERUM 4.3 mmol/L (3.5-5.1); PROTEIN - SERUM 5.6 g/dL (6.4-8.2); SODIUM 140 mmol/L (136-145); UREA NITROGEN 10 mg/dL (7-18); eGFR NON AFRICAN AMERICAN 78 mL/min (90-120)
--- NOTE | 2020-11-26 07:58 | NUR ---
PT SITTING UP IN BED WATCHING TV. RESP EVEN AND UNLABORED. REPORTS PAIN 2/10 AT THIS TIME. DRESSING TO LEFT HIP C/D/I, SCANT OLD DRAINAGE NOTED TO SURGICAL DRESSING. IV TO RIGHT WRIST WITH 1/2 NS @ 100ML/HR INFUSING VIA PUMP. SITE WITHOUT REDNESS OR EDEMA. PT DENIES FURTHER NEEDS AT THIS TIME. CL WITHIN REACH. ENCOURAGED TO CALL WITH NEEDS. CONTINUE POC
[2020-11-26 08:31] VITALS: BP 101/55
--- NOTE | 2020-11-26 11:20 | NUR ---
DISCHARGE PAPERWORK PROVIDED TO PT WITH AFTER CARE INSTRUCTIONS. DRESSING CHANGED TO LEFT HIP WITH MEPILEX AG. DERMABOND GLUE STRIP INTACT, EDGES WELL APPROXIMATED WITHOUT ANY REDNESS, EDEMA OR DRAINAGE. EDUCATED ON WOUND CARE AND DRESSING CHANGES. DISCUSSED NEW PRESCRIPTIONS AND CONTINUATION OF HOME MEDICATIONS PRIOR TO HOSPITALIZATION. IV TO RIGHT FOREARM DISCONTINUED, CATH INTACT. PT VOICES UNDERSTANDING OF INSTRUCTIONS AND DENIES ANY QUESTIONS OR CONCERNS. PT TAKEN OUT VIA W/C TO PRIVATE VEHICLE WITH ALL PERSONAL POSESSIONS.
--- NOTE | 2020-11-26 16:34 | MORECARE ---
CASE MANAGEMENT DISCHARGE SUMMARY PATIENT: VANI RAMOS UNIT: [id number] ADM DATE: 11/25/20 AGE: 60 : 62 SEX: F ROOM/BED: [facility]8 AUTHOR: TONIE,DOC PHYSICIAN: REFERRING PHYSICIAN: LAURO MARIN DO DATE OF SERVICE: 11/26/20 Case Management Discharge Planning Summary DCP REVIEW SUMMARY ANTICIPATED D/C DATE: EXPECTED LOS : CASE STATUS: DCP Initiated INITIAL REVIEW: 11/25/2020 INITIAL REVIEWER: Rachael Figueredo FINAL DISCHARGE DISPOSITION: : FINAL REVIEWER: FINAL REVIEW DATE: DCP Focus Questions & Answers QUESTION: ANSWER : PATIENT: VANI RAMOS ENCOUNTER: [id number] MEDICAL RECORD#: [id number] ADMISSION DATE: 11/25/2020 DISCHARGE DATE: 11/26/2020 ATTENDING MD: LAURO VERAS : AGE: 60 MARITAL STATUS: M DC PLAN ID: [id number] FACILITY: [facility] PRINTED ON: 11/26/20 16:34 CT All edits/amendments must be made on the electronic document DICTATION DATE: 11/26/20 163 SOLDER CREAM MAKER: ERASMO 11/26/20 1634 RPT#: [id number] DC DATE:11/26/20 STATUS: DIS IN [facility] [address] [place] [address] END OF REPORT
--- NOTE | 2020-11-26 16:46 | MORECARE ---
CASE MANAGEMENT DISCHARGE SUMMARY PATIENT: VANI RAMOS UNIT: [id number] ADM DATE: 11/25/20 AGE: 60 : 62 SEX: F ROOM/BED: D.1208 AUTHOR: TONIE,DOC PHYSICIAN: REFERRING PHYSICIAN: LAURO MARIN DO DATE OF SERVICE: 11/26/20 Case Management Discharge Planning Summary COMMENTS ENTERED DATE: 11/26/20 16:30 CT COMMENT TYPE: Discharge Planning REVIEWER: Rachael Figueredo PCP: Dr. Rodgers Pharmacy: [facility] CM met with patient at bedside. Patient states that she lives at home with her spouse Cassius. Patient states that she has 1 step going into her home. Patient states that she has a walker, elevated toilet seat, and shower chair. Patient states that she wishes to do outpatient therapy when discharged. SAMANTHA signed for [facility] Out[facility]. Patient states that feels safe to discharge to her home with her and she will transportation home and to therapy. CM made appointment for first therapy appointment TuesdayNovember 28 at 0830. CM will give copy of appointment and order to patient. CM will continue to follow and assist as needed with discharge planning / needs DCP REVIEW SUMMARY ANTICIPATED D/C DATE: EXPECTED LOS : CASE STATUS: DCP Initiated INITIAL REVIEW: 11/25/2020 INITIAL REVIEWER: Rachael Figueredo FINAL DISCHARGE DISPOSITION: : FINAL REVIEWER: FINAL REVIEW DATE: DCP Focus Questions & Answers QUESTION: ANSWER : PATIENT: VANI RAMOS ENCOUNTER: [id number] MEDICAL RECORD#: [id number] ADMISSION DATE: 11/25/2020 DISCHARGE DATE: 11/26/2020 ATTENDING MD: LAURO VERAS : AGE: 60 MARITAL STATUS: M DC PLAN ID: [id number] FACILITY: [facility] PRINTED ON: 11/26/20 16:46 CT All edits/amendments must be made on the electronic document DICTATION DATE: 11/26/201645 [employer]ANDSCAPE [employer]IC[employer]URE INSTRUCTOR: ERASMO 11/26/201645 RPT#: [id number] DC DATE:11/26/20 STATUS: DIS IN [facility] [address] [place] [address] END OF REPORT
--- NOTE | 2020-11-26 20:05 | MORECARE ---
CASE MANAGEMENT DISCHARGE SUMMARY PATIENT: VANI RAMOS UNIT: [id number] ADM DATE: 11/25/20 AGE: 60 : 62 SEX: F ROOM/BED: D.1208 AUTHOR: TONIE,DOC PHYSICIAN: REFERRING PHYSICIAN: LAURO MARIN DO DATE OF SERVICE: 11/26/20 Case Management Discharge Planning Summary COMMENTS ENTERED DATE: 11/26/20 16:30 CT COMMENT TYPE: Discharge Planning REVIEWER: Rachael Figueredo PCP: Dr. Rodgers Pharmacy: [facility] CM met with patient at bedside. Patient states that she lives at home with her spouse Cassius. Patient states that she has 1 step going into her home. Patient states that she has a walker, elevated toilet seat, and shower chair. Patient states that she wishes to do outpatient therapy when discharged. SAMANTHA signed for [facility] Outpatient Physical Therapy. Patient states that feels safe to discharge to her home with her and she will transportation home and to therapy. CM made appointment for first therapy appointment TuesdayNovember 28 at 0830. CM will give copy of appointment and order to patient. CM will continue to follow and assist as needed with discharge planning / needs DCP REVIEW SUMMARY ANTICIPATED D/C DATE: EXPECTED LOS : CASE STATUS: DCP Initiated INITIAL REVIEW: 11/25/2020 INITIAL REVIEWER: Rachael Figueredo FINAL DISCHARGE DISPOSITION: : FINAL REVIEWER: FINAL REVIEW DATE: DCP Focus Questions & Answers QUESTION: ANSWER : PATIENT: VANI RAMOS ENCOUNTER: [id number] MEDICAL RECORD#: [id number] ADMISSION DATE: 11/25/2020 DISCHARGE DATE: 11/26/2020 ATTENDING MD: LAURO VERAS : AGE: 60 MARITAL STATUS: M DC PLAN ID: [id number] FACILITY: [facility] PRINTED ON: 11/26/20 20:05 CT All edits/amendments must be made on the electronic document DICTATION DATE: 11/26/202003 LOGISTICS MANAGEMENT SPECIALIST: ERASMO 11/26/202003 RPT#: [id number] DC DATE:11/26/20 STATUS: DIS IN [facility] [address] [place] [address] END OF REPORT
== END 2020-11-26 11:40 | disposition home or self-care (01) ==
LOC: D.OPS 05:30 → EDSTATUS 08:00 → D.OPS 08:00 → D.M3 10:04 → D.OPS 11:56 → OBSVTIME 12:00 → D.M3 12:00
PROVIDERS: Family Medicine; ADMIT Orthopaedic Surgery; ATTEND Orthopaedic Surgery
DX: M16.12 Unilateral primary osteoarthritis, left hip (principal); G89.29 Other chronic pain

== ENCOUNTER → 2020-12-09 20:38 | Outpatient (CLI) | payer MEDICAID ==
[2020-11-25 11:27] VITALS: BMI 27.3
[~2020-12-09 20:38] MED LIST changes: +PERCOCET 10-321 EAC1 PO; +ZETIA10 MG
[2020-12-09 21:13] LABS: PROTEIN - BODY FLUID 3.9 G/DL
[2020-12-09 22:37] LABS: EOS BF 2 %; MACROPHAGES BF 4 %; MESOTHELIALS BF 3 %; NEUT - BF 80 %
== END | disposition home or self-care (01) ==
LOC: D.LABREF 20:38
PROVIDERS: ATTEND Nurse Practitioner Family
DX: Z96.642 Presence of left artificial hip joint (principal)